=== PATIENT | male | born 1935 | race Caucasian/White ===

== ENCOUNTER 2017-04-09 14:46 | Emergency (ER) | payer MEDICARE, OTHER ==
[2017-04-09] MEDS ORDERED: HYDROcodone/APAP 5-325MG 1 EACH TAB PO STA (15:10)
--- NOTE | 2017-04-09 15:32 | ED ---
Upper Extremity HPI - General Chief Complaint: Extremity Injury, Upper Stated Complaint: Fall Time Seen by Provider: 04/09/17 15:01 Source: patient Mode of arrival: wheelchair Limitations: no limitations - History of Present Illness Initial Comments: This 81-year-old white male presents complaining of some right upper extremity pain. He states that he tripped and fell this morning and landed on his right arm. He developed significant swelling present to his right forearm has pain in his right forearm and elbow region. He apparently went to the urgent care and they did some x-rays which are purportedly negative sent him to the ER for possible drainage and ultrasound. He presents with significant ecchymosis and obvious hematoma present to his right forearm. The daughter relates that he is on blood thinners. 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 He denies any head injury or neck pain. He denies any loss of consciousness. There is no other injuries or complaints or modifying factors. - Related Data Home Medications Medication Instructions Recorded Confirmed Aspirin 81 mg PO DAILY 09/14/14 04/09/17 Carvedilol [Coreg] 6.25 mg PO BID 09/14/14 04/09/17 Clopidogrel [Plavix] 75 mg PO DAILY 09/14/14 04/09/17 Lisinopril [Prinivil] 20 mg PO DAILY 09/14/14 04/09/17 Atorvastatin [Lipitor] 80 mg PO DAILY 04/09/17 04/09/17 Citalopram Hydrobromide [CeleXA] 20 mg PO DAILY 04/09/17 04/09/17 Diazepam [Valium] 5 mg PO DAILY PRN 04/09/17 04/09/17 Hydrochlorothiazide 12.5 mg PO DAILY 04/09/17 04/09/17 Pioglitazone HCl 15 mg PO DAILY 04/09/17 04/09/17 Previous Rx's Medication Instructions Recorded Hydrocodone/Acetaminophen [[place] 1 - 2 each PO Q4HR PRN #20 tab 04/09/17 5-325] Allergies Allergy/AdvReac Type Severity Reaction Status Date / Time No Known Allergies Allergy Verified 04/09/17 16:14 Review of Systems ROS Statement: Those systems with pertinent positive or pertinent negative responses have been documented in the HPI. ROS Other: All systems not noted in ROS Statement are negative. Past Medical History Past Medical History: Cancer, Heart Failure, CVA/TIA, Hypertension History of Any Multi-Drug Resistant Organisms: None Reported Past Surgical History: Cholecystectomy Additional Past Surgical History / Comment(s): Left wrist carpal tunnel, right shoulder Past Psychological History: No Psychological Hx Reported Smoking Status: Never smoker Past Alcohol Use History: Rare Past Drug Use History: None Reported General Exam - General Exam Comments Initial Comments: GENERAL: The patient is well nourished and well hydrated. VITAL SIGNS: Heart rate, blood pressure, respiratory rate reviewed as recorded in nurse's notes. EYES: Pupils are round and reactive. Extraocular movements are intact. No conjunctival / lid redness or swelling. ENT: No external evidence of injury, swelling, or ecchymosis. Airway is patent. Throat is clear. NECK: Nontender. No swelling or evidence of injury. No subcutaneous emphysema. Trachea is midline. No thyroid mass. HEART: Regular rate and rhythm. Good peripheral pulses. LUNGS/CHEST: Breath sounds clear and equal bilaterally. No rales, rhonchi, or wheezes. No ecchymosis, subcutaneous emphysema, or tenderness. ABDOMEN: Abdomen soft without tenderness. No palpable masses or organomegaly. No peritoneal signs. No abdominal wall swelling or ecchymosis. EXTREMITIES: There is tenderness, swelling, and ecchymosis present to the right forearm. There is excellent range of motion of the wrist and the elbow without any difficulty. Patient does have decent strength the right upper and right lower extremity but this is decreased as compared to the left side. Normal muscle tone and function. No thoracolumbar tenderness. NEUROLOGIC: Sensation is grossly intact. Cranial nerve exam reveals face is symmetrical, tongue is midline, speech is clear. SKIN: Ecchymosis and swelling is noted present to the right forearm. No induration or masses noted. PSYCHIATRIC: Alert and oriented. Appropriate behavior and judgment. Limitations: no limitations Course Vital Signs 04/09/17 14:52 Temperature 97.5 F L Pulse Rate 66 Respiratory 18 Rate Blood Pressure 186/86 O2 Sat by Pulse 95 Oximetry Medical Decision Making - Medical Decision Making The patient was seen and examined. An ultrasound is ordered of the right upper extremity. X-rays also are ordered of the right upper extremities. The patient received some [place] for pain and has moderate relief. The x-rays do show evidence of a nondisplaced rib right radial head fracture. The patient also had a ultrasound done of his right upper extremity and this does show a 5 cm 6 cm right forearm hematoma but there is no evidence of any DVT. It is felt that this hematoma would likely resolve with time. It is felt as though the hematoma is fairly vague as he is on Plavix and aspirin. He is placed in a right arm sling. It is felt that he benefit from follow-up with orthopedics in regard to his right radial head fracture. He is seeing Dr. Hernandez in the past. He leaves in much less distress. He is counseled regarding ambulation and falls as well. It is felt that he should follow-up with his primary doctor in regard to hypertension. Disposition Clinical Impression: Hematoma of arm, Right radial head fracture, Fall, Hypertension Disposition: HOME SELF-CARE Condition: Good Instructions: Fall Prevention (ED), Elbow Fracture in Adults (ED), Hypertension (ED), Hematoma (ED) Prescriptions: Hydrocodone/Acetaminophen [[place] 5-325] 1 - 2 each PO Q4HR PRN #20 tab PRN Reason: Pain Referrals: Pio Peguero MD [Primary Care Provider] - 1-2 days Time of Disposition: 17:24
--- NOTE | 2017-04-09 16:05 | XR ---
EXAMINATION TYPE: XR elbow limited RT DATE OF EXAM: 04/09/2017 3:58 PM COMPARISON: NONE HISTORY: Fall, pain TECHNIQUE: 2 view right elbow FINDINGS: There is a subtle fracture at the head of the radius. Small avulsion adjacent to the head o f the radius is present. There is elevation of the anterior fat pad. IMPRESSION: 1. Fracture at the head of the radius.
--- NOTE | 2017-04-09 16:06 | XR ---
EXAMINATION TYPE: XR forearm RT DATE OF EXAM: 04/09/2017 3:58 PM COMPARISON: NONE HISTORY: Fall, pain TECHNIQUE: 2 view right forearm FINDINGS: Please see elbow discussion same date. Soft tissue swelling is over the proximal forearm. Displaced fractures of the distal radius or ulna i s not identified. There is a fracture present at the head of the radius. This is better visualized on the elbow images. IMPRESSION: 1. Fracture radial head. Please see discussion same date. 2. Soft tissue swelling proximal forearm
--- NOTE | 2017-04-09 17:17 | US ---
EXAMINATION TYPE: US venous doppler duplex UE RT DATE OF EXAM: 04/09/2017 4:58 PM COMPARISON: NONE CLINICAL HISTORY: Pain. Patient fell today landing on floor injuring right arm with forearm swelling and bruising. SIDE PERFORMED: right arm Right Arm: Negative for DVT. Complex oval area is noted posterolateral elbow at swelling and mass siz e = 6.0 x 2.7 x 5.0cm with additional fluid channels noted posterior forearm at bruises. IMPRESSION: No evidence of deep venous thrombosis. There is a complex subcutaneous mass at the posterior right el bow that could relate to hematoma.
--- NOTE | 2017-04-09 17:25 | ED ---
Disposition Clinical Impression: Hematoma of arm, Right radial head fracture, Fall, Hypertension Disposition: HOME SELF-CARE Condition: Good Instructions: Elbow Fracture in Adults (ED), Hypertension (ED), Fall Prevention (ED), Hematoma (ED) Prescriptions: Hydrocodone/Acetaminophen [[place] 5-325] 1 - 2 each PO Q4HR PRN #20 tab PRN Reason: Pain Referrals: Pio Peguero MD [Primary Care Provider] - 1-2 days Armando Hernandez DO [Doctor of Osteopathic Medicine] - 04/12/17
[2017-04-09 17:41] VITALS: BP 184/79; PULSE 56; RESP 16; TEMP 97.1
== END 2017-04-09 17:52 | disposition home or self-care (01) ==
LOC: EC 14:46
DX: S52.124A Nondisplaced fracture of head of right radius, initial encounter for closed fracture (principal); I11.0 Hypertensive heart disease with heart failure; Z79.02 Long term (current) use of antithrombotics/antiplatelets; Z79.82 Long term (current) use of aspirin; Z79.899 Other long term (current) drug therapy; Z86.73 Personal history of transient ischemic attack (TIA), and cerebral infarction without residual deficits; W01.0XXA Fall on same level from slipping, tripping and stumbling without subsequent striking against object, initial encounter
CPT/HCPCS: 99284

== ENCOUNTER 2017-04-20 16:58 | Inpatient (IN) | payer MEDICARE, OTHER ==
[2017-04-20] MEDS ORDERED: SODIUM CHLORIDE 0.9% 1,000 ML IV STA (17:36)
--- NOTE | 2017-04-20 17:45 | ED ---
Upper Extremity HPI - General Source: patient, RN notes reviewed Mode of arrival: ambulatory Limitations: no limitations <Brianna Perla - Last Filed: 04/20/17 20:42> <Greyson Sotomayor - Last Filed: 04/20/17 21:05> - General Chief Complaint: Extremity Injury, Upper Stated Complaint: Poss Blood Clot-swollen Elbow Time Seen by Provider: 04/20/17 17:30 - History of Present Illness Initial Comments: 81 yo male presents to the ER with cc of right elbow pain and swelling. Patient has had this elbow injury about a week ago when he fell and he had a hairline fracture to the elbow. Patient follow-up with Dr. Hawk due to the swelling they said that they like him to discontinue range of motion did not placement of cast. He went to his doctor today due to increased swelling and pain in the were concerned about infection versus blood clot so they referred him here. Patient states he does have a healing abrasion to the right elbow. The patient states it is more swollen and he is having hard time moving it due to discomfort. Patient states he hasn't had any fever chills with this. Patient denies any other symptoms at this time.Patient denies any recent fever , chills, shortness of breath, chest pain, back pain, abdominal pain, nausea vomiting, numbness or tingling, dysuria or hematuria, constipation or diarrhea, headaches or visual changes, or any other current symptoms. (Brianna Perla) - Related Data Home Medications Medication Instructions Recorded Confirmed Aspirin 81 mg PO DAILY 09/14/14 04/20/17 Carvedilol [Coreg] 6.25 mg PO BID 09/14/14 04/20/17 Clopidogrel [Plavix] 75 mg PO DAILY 09/14/14 04/20/17 Atorvastatin [Lipitor] 80 mg PO DAILY 04/09/17 04/20/17 Citalopram Hydrobromide [CeleXA] 20 mg PO DAILY 04/09/17 04/20/17 Diazepam [Valium] 5 mg PO DAILY PRN 04/09/17 04/20/17 Hydrochlorothiazide 12.5 mg PO DAILY 04/09/17 04/20/17 Pioglitazone HCl 15 mg PO DAILY 04/09/17 04/20/17 Hydrocodone/Acetaminophen [[place] 1 - 2 tab PO Q4HR PRN 04/20/17 04/20/17 5-325] Lisinopril [Zestril] 30 mg PO DAILY 04/20/17 04/20/17 Allergies Allergy/AdvReac Type Severity Reaction Status Date / Time No Known Allergies Allergy Verified 04/20/17 17:50 Review of Systems ROS Other: All systems not noted in ROS Statement are negative. <Brianna Perla - Last Filed: 04/20/17 20:42> ROS Other: All systems not noted in ROS Statement are negative. <Greyson Sotomayor - Last Filed: 04/20/17 21:05> ROS Statement: Those systems with pertinent positive or pertinent negative responses have been documented in the HPI. Past Medical History Past Medical History: Cancer, Heart Failure, CVA/TIA, Hypertension History of Any Multi-Drug Resistant Organisms: None Reported Past Surgical History: Cholecystectomy Additional Past Surgical History / Comment(s): Left wrist carpal tunnel, right shoulder Past Psychological History: No Psychological Hx Reported Smoking Status: Never smoker Past Alcohol Use History: Rare Past Drug Use History: None Reported <Brianna Perla - Last Filed: 04/20/17 20:42> General Exam Limitations: no limitations <Brianna Perla - Last Filed: 04/20/17 20:42> <Greyson Sotomayor - Last Filed: 04/20/17 21:05> - General Exam Comments Initial Comments: General: The patient is awake and alert, in no distress, and does not appear acutely ill. Neck: The neck is supple, there is no tenderness. Cardiovascular: There is a regular rate and rhythm. No murmur, rub or gallop is appreciated. Respiratory: Lungs are clear to auscultation, respirations are non-labored, breath sounds are equal. No wheezes, stridor, rales, or rhonchi. Musculoskeletal: Sensation intact with 2+ pulses. Extremity. Full range of motion of right shoulder and right elbow with passive range of motion. Patient has difficulty with active range of motion of the right elbow. Patient does appear to pitting edema with erythema and her nose to the upper arm. There is no abrasion that is circular noted to the elbow region. Neurological: CN II-XII intact, There are no obvious motor or sensory deficits. Coordination appears grossly intact. Speech is normal. Skin: Skin is warm and dry and no rashes or lesions are noted. Psychiatric: Normal mood and affect. (Brianna Perla) Course <Brianna Perla - Last Filed: 04/20/17 20:42> <Greyson Sotomayor - Last Filed: 04/20/17 21:05> Vital Signs 04/20/17 17:19 Temperature 97 F L Pulse Rate 53 L Respiratory 16 Rate Blood Pressure 140/66 O2 Sat by Pulse 98 Oximetry - Reevaluation(s) Reevaluation #1: 04/20/17 21:04 I did personally do a [id number] evaluation the patient did discuss the findings with the patient and family. 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 The concern is for cellulitis. I did discuss case with Dr. Peguero initially Dr. Mehta was consult and contacted. Patient will be admitted for IV inpatient therapy. (Greyson Sotomayor) Medical Decision Making - Lab Data Result diagrams: 04/20/17 19:33 04/20/17 19:33 - Radiology Data Radiology results: report reviewed, image reviewed <Brianna Perla - Last Filed: 04/20/17 20:42> - Lab Data Result diagrams: 04/20/17 19:33 04/20/17 19:33 <Greyson Sotomayor - Last Filed: 04/20/17 21:05> - Medical Decision Making 81-year-old male presents to the emergency room chief complaint of concern for infection to the right upper extremity. At this time patient does appear to have a right upper shoulder any cellulitis. This and there is no DVT. The patient's health history as well as the elevated (hemoglobin for IV hydration and IV antibiotics. This is discussed with the patient family agreement with plan. All questions have been answered. They will be admitted. (Brianna Perla) - Lab Data Lab Results 04/20/17 04/20/17 04/20/17 Range/Units 19:33 19:33 19:33 WBC 5.9 (3.8-10.6) k/uL RBC 3.51 L (4.30-5.90) m/uL Hgb 11.5 L (13.0-17.5) gm/dL Hct 34.2 L (39.0-53.0) % MCV 97.5 (80.0-100.0) fL MCH 32.7 (25.0-35.0) pg MCHC 33.5 (31.0-37.0) g/dL RDW 13.4 (11.5-15.5) % Plt Count 132 L (150-450) k/uL Neutrophils % 60 % Lymphocytes % 28 % Monocytes % 5 % Eosinophils % 4 % Basophils % 1 % Neutrophils # 3.6 (1.3-7.7) k/uL Lymphocytes # 1.7 (1.0-4.8) k/uL Monocytes # 0.3 (0-1.0) k/uL Eosinophils # 0.3 (0-0.7) k/uL Basophils # 0.0 (0-0.2) k/uL Sodium 137 (137-145) mmol/L Potassium 5.6 H (3.5-5.1) mmol/L Chloride 105 (98-107) mmol/L Carbon Dioxide 25 (22-30) mmol/L Anion Gap 7 mmol/L BUN 35 H (9-20) mg/dL Creatinine 1.75 H (0.66-1.25) mg/dL Est GFR (MDRD) Af Amer 46 (>60 ml/min/1.73 sqM) Est GFR (MDRD) Non-Af 38 (>60 ml/min/1.73 sqM) Glucose 81 (74-99) mg/dL Plasma Lactic Acid Michael 0.8 (0.7-2.0) mmol/L Calcium 9.2 (8.4-10.2) mg/dL Total Bilirubin 1.1 (0.2-1.3) mg/dL AST 21 (17-59) U/L ALT 30 (21-72) U/L Alkaline Phosphatase 83 (38-126) U/L Total Protein 6.6 (6.3-8.2) g/dL Albumin 3.8 (3.5-5.0) g/dL Disposition Time of Disposition: 20:38 Decision Date: 04/20/17 Decision Time: 20:38 <Brianna Perla - Last Filed: 04/20/17 20:42> <Greyson Sotomayor - Last Filed: 04/20/17 21:05> Clinical Impression: Right radial head fracture, Right arm cellulitis, Dehydration, Elevated creatine kinase level Disposition: ADMITTED IP TO THIS [facility] Condition: Stable Referrals: Pio Peguero MD [Primary Care Provider] - 1-2 days
--- NOTE | 2017-04-20 19:04 | XR ---
EXAMINATION TYPE: XR elbow complete RT DATE OF EXAM: 04/20/2017 COMPARISON: 04/09/2017 HISTORY: Pain TECHNIQUE: 5 views right elbow FINDINGS: There is a fracture at the head of the radius. Radius aligns normally with the humerus. Dif fuse soft tissue swelling is at the elbow and proximal forearm. Small avulsion is identified on the A P projection from the radial head. IMPRESSION: 1. Fracture at the radial head. Findings are stable from 04/09/2017.
--- NOTE | 2017-04-20 19:19 | US ---
EXAMINATION TYPE: US venous doppler duplex UE RT DATE OF EXAM: 04/20/2017 COMPARISON: US CLINICAL HISTORY: Pain. Rt elbow swelling SIDE PERFORMED: Right Right Arm: Negative for DVT IMPRESSION: 1. No deep venous thrombosis right upper extremity by ultrasound evaluation.
[2017-04-20] MEDS ORDERED: HYDROmorphone 1 MG/ML 1 ML SYRINGE IVP STA (19:45)
[2017-04-20 19:55] LABS: Basophils % (A) 1 %; CH 32.6; CHCM 33.7; Eosinophils # (A) 0.3 k/uL (0-0.7); Eosinophils % (A) 4 %; HCT 34.2 % (39.0-53.0); HDW 2.47; HGB 11.5 gm/dL (13.0-17.5); Luc # (Auto) 0.14; Luc % (Auto) 2; Lymphocytes # (A) 1.7 k/uL (1.0-4.8); Lymphocytes % (A) 28 %; MCH 32.7 pg (25.0-35.0); MCHC 33.5 g/dL (31.0-37.0); MCV 97.5 fL (80.0-100.0); Mean Platelet Volume 8.2; Monocytes # (A) 0.3 k/uL (0-1.0); Monocytes % (A) 5 %; Neutrophils # (A) 3.6 k/uL (1.3-7.7); Neutrophils % (A) 60 %; RBC 3.51 m/uL (4.30-5.90); RDW 13.4 % (11.5-15.5); WBC 5.9 k/uL (3.8-10.6); WBC (Perox) 6.12
[2017-04-20] MEDS ORDERED: IV VANCOMYCIN PER PHARMACY 1 EACH MISC MISCELLANE PRN (20:02)
[2017-04-20] MEDS ORDERED: VANCOMYCIN 2,500 MG in SODIUM CHLORIDE 0.9% 500 ML IVPB STA (20:04)
[2017-04-20 20:10] LABS: Calcium 9.2 mg/dL (8.4-10.2); Potassium 5.6 mmol/L (3.5-5.1); Total Bilirubin 1.1 mg/dL (0.2-1.3); Total Protein 6.6 g/dL (6.3-8.2)
[2017-04-20] MEDS ORDERED: ACETAMINOPHEN TAB 325 MG TAB PO PRN (20:38)
[2017-04-20] MEDS ORDERED: IBUPROFEN 400 MG TAB PO PRN (20:38)
[2017-04-20] MEDS ORDERED: NALOXONE 0.4 MG/ML 1 ML VIAL IV PRN (20:38)
[2017-04-20] MEDS ORDERED: ONDANSETRON 4 MG/2 ML VIAL IVP PRN (20:38)
[2017-04-20] MEDS ORDERED: DIAZEPAM 5 MG TAB PO PRN (20:41)
[2017-04-20] MEDS: CARVEDILOL 6.25 MG TAB PO SCH (22:17)
[2017-04-20] MEDS: SODIUM CHLORIDE 0.9% 1,000 ML IV SCH (22:19)
[2017-04-21] MEDS: HYDROmorphone 1 MG/ML 1 ML SYRINGE IV PRN ×2 (05:35→15:51)
[2017-04-21 07:38] LABS: Glucose,Whole Blood 93 mg/dL (75-99)
[2017-04-21 08:47] LABS: Basophils % (A) 0 %; CH 32.2; CHCM 32.3; Eosinophils # (A) 0.1 k/uL (0-0.7); Eosinophils % (A) 3 %; HCT 33.5 % (39.0-53.0); HDW 2.36; HGB 10.8 gm/dL (13.0-17.5); Luc % (Auto) 2; Lymphocytes % (A) 21 %; MCH 32.2 pg (25.0-35.0); MCHC 32.1 g/dL (31.0-37.0); MCV 100.2 fL (80.0-100.0); Macrocytosis Slight; Mean Platelet Volume 7.9; Monocytes # (A) 0.3 k/uL (0-1.0); Monocytes % (A) 5 %; Neutrophils # (A) 3.5 k/uL (1.3-7.7); Neutrophils % (A) 70 %; RBC 3.35 m/uL (4.30-5.90); RDW 13.7 % (11.5-15.5); WBC (Perox) 5.43
[2017-04-21 08:59] LABS: Potassium 5.3 mmol/L (3.5-5.1); Total Bilirubin 0.8 mg/dL (0.2-1.3); Total Protein 5.6 g/dL (6.3-8.2)
[2017-04-21] MEDS ORDERED: LISINOPRIL 10 MG TAB PO SCH (09:00)
[2017-04-21] MEDS ORDERED: HYDROCHLOROTHIAZIDE 12.5 MG CAP PO SCH (09:00)
[2017-04-21] MEDS: CLOPIDOGREL 75 MG TAB PO SCH (09:37)
[2017-04-21] MEDS: CARVEDILOL 6.25 MG TAB PO SCH ×2 (09:37→17:50)
[2017-04-21] MEDS: CITALOPRAM HYDROBROMIDE 20 MG TAB PO SCH (09:37)
[2017-04-21] MEDS: PIOGLITAZONE 15 MG TAB PO SCH (09:37)
[2017-04-21] MEDS: ASPIRIN 81 MG CHEW PO SCH (09:38)
[2017-04-21] MEDS: ATORVASTATIN 80 MG TAB PO SCH (09:38)
[2017-04-21] MEDS: SODIUM CHLORIDE 0.9% 1,000 ML IV SCH ×4 (09:41→21:14)
[2017-04-21] MEDS: ENOXAPARIN 40 MG/0.4 ML SYRINGE SQ SCH (09:41)
--- NOTE | 2017-04-21 11:25 | HP ---
DATE OF ADMISSION: 04/20/2017 Presenting complaint: ( ) on the right elbow. HISTORY OF PRESENTING COMPLAINT: This is a 81-year-old patient of Dr. Peguero, chronic stable medical conditions include congestive heart failure, stroke, right-sided numbness, hypertension, diabetes, depression, hypercholesterolemia. Patient is not the best of historians. Patient took a fall about 10 days ago, had a fracture of the right radius. Supposed to come back and see Dr. Hernandez from Orthopedics. In the meantime, the patient's right elbow has swelled up, very extreme tenderness actually just beyond the elbow with an area of grazing there. Denies any fevers, but extreme tenderness. Patient not able to move his elbow much. REVIEW OF SYSTEMS: CONSTITUTIONAL: Tired. HEENT: None. RESPIRATORY: None. CARDIOVASCULAR: None. GASTROINTESTINAL: None. GENITOURINARY: None. MUSCULOSKELETAL: As above. DERMATOLOGICAL: Bruising distal to the right elbow. PSYCHIATRY: Patient is rather slow to answer questions. NEUROLOGICAL: None. PAST HISTORY: Congestive heart failure, stroke with right-sided numbness, hypertension, diabetes, depression, hypercholesterolemia, [place], abdominal aortic aneurysm. PAST SURGICAL HISTORY: Cholecystectomy, left wrist carpal tunnel, right shoulder surgery. SOCIAL HISTORY: . Did smoke in the past. Alcohol rarely. Family history of congestive heart failure. HOME MEDICATIONS: 1. [place] 5 one to two tablets q.4 p.r.n. 2. Actos 50 mg p.o. daily. 3. Zestril 30 mg p.o. daily. 4. Hydrochlorothiazide 12.5 p.o. daily. 5. Valium 5 mg p.o. daily p.r.n. 6. Plavix 75 mg daily. 7. Celexa 20 mg a day. 8. Coreg 6.25 p.o. b.i.d. 9. Lipitor 80 mg p.o. daily. 10. Aspirin 81 mg p.o. daily. ALLERGIES: None. On examination, vital signs on presentation: Temperature 98.7, pulse 53, respirations 16, blood pressure 140/66, pulse ox 98% on room air. GENERAL APPEARANCE: Well built, BMI of 67. Lying in bed. EYES: Pupils equal, conjunctivae normal. HEENT: Oral cavity normal. NECK: JVD unable to assess. Mass not palpable. RESPIRATORY: Effort normal. LUNGS: Slightly decreased breath sounds. CARDIOVASCULAR: First and second sounds normal. No edema. ABDOMEN: Soft, nontender. Liver and spleen not palpable. LYMPHATIC: No lymph node palpable in neck or axillae. PSYCHIATRY: Patient is slow to answer questions. Mood and affect normal. EXTREMITIES: Great swelling beyond the right elbow, area of extreme tenderness that has superficial bruising on the skin. Patient has good capillary reflects, pulse is maintained in the radial. INVESTIGATIONS: White count 5.9, hemoglobin 11.5, potassium 5.6. BUN 35, creatinine 1.75. Doppler ultrasound no DVT. ASSESSMENT: 1. Area of extreme swelling, could be abscess/subcutaneous cellulitis in the right elbow with area of superficial bruising from a fall about 10 days ago causing some limitation to the right elbow though this appears to be distal to the elbow joint. 2. Right radial neck fracture secondary to fall recently. 3. Chronic congestive heart failure, ejection fraction not known. 4. Essential hypertension. 5. Diabetes mellitus type 2, on oral hypoglycemic. 6. Chronic kidney disease stage III, likely from diabetic nephropathy. 7. Hypercholesterolemia. 8. Coronary artery disease with prior history of myocardial infarction. 9. Abdominal aortic aneurysm. 10. Essential hypertension. 11. Morbid obesity, body mass index of 67. PLAN: At this point, patient is put on vancomycin. Will consult Infectious Disease, Dr. Hernandez was also consulted. Will do an ultrasound of the area to make sure there is no abscess. Otherwise, will have to be drained. This is rather tender at this point. Given that patient has got hyperkalemia, will hold off patient's Zestril and given renal failure will also DC patient's Motrin. Care was discussed with the patient. Questions were answered.
[2017-04-21 12:29] LABS: Glucose,Whole Blood 106 mg/dL (75-99)
[2017-04-21 12:31] LABS: Hemoglobin A1C 5.6 % (4.2-6.1)
--- NOTE | 2017-04-21 12:31 | US ---
EXAMINATION TYPE: US extremity nonvasc mass RT DATE OF EXAM: 04/21/2017 COMPARISON: NONE CLINICAL HISTORY: poss abscess. Painful lump on right lateral upper forearm, below elbow. Area of palpable lump scanned. Heterogenous complex superficial lesion seen = 5.3 x 5.7 x 2.6 cm. Lit tle to no vascularity seen. IMPRESSION: Complex collection at the site of clinical concern and may reflect a hematoma. Infected collection is not excluded. Please note this collection is not drainable.
[2017-04-21 17:19] LABS: Glucose,Whole Blood 103 mg/dL (75-99)
[2017-04-21] MEDS ORDERED: VANCOMYCIN 2,500 MG in SODIUM CHLORIDE 0.9% 500 ML IVPB SCH (18:00)
[2017-04-21 20:30] LABS: Glucose,Whole Blood 121 mg/dL (75-99)
[2017-04-22] MEDS: SODIUM CHLORIDE 0.9% 1,000 ML IV SCH ×3 (06:53→23:08)
[2017-04-22 07:02] LABS: Glucose,Whole Blood 94 mg/dL (75-99)
[2017-04-22 08:08] LABS: Basophils # (A) 0.1 k/uL (0-0.2); Basophils % (A) 1 %; CH 32.2; CHCM 33.1; Eosinophils # (A) 0.2 k/uL (0-0.7); Eosinophils % (A) 3 %; HCT 32.9 % (39.0-53.0); HDW 2.37; Luc # (Auto) 0.13; Luc % (Auto) 2; Lymphocytes # (A) 1.1 k/uL (1.0-4.8); Lymphocytes % (A) 17 %; MCH 32.7 pg (25.0-35.0); MCHC 33.4 g/dL (31.0-37.0); MCV 97.7 fL (80.0-100.0); Mean Platelet Volume 8.3; Monocytes # (A) 0.3 k/uL (0-1.0); Monocytes % (A) 5 %; Neutrophils % (A) 74 %; RBC 3.36 m/uL (4.30-5.90); RDW 13.7 % (11.5-15.5); WBC 6.8 k/uL (3.8-10.6); WBC (Perox) 6.57
[2017-04-22 08:26] LABS: Calcium 8.7 mg/dL (8.4-10.2); Potassium 5.3 mmol/L (3.5-5.1)
[2017-04-22] MEDS: ENOXAPARIN 40 MG/0.4 ML SYRINGE SQ SCH (08:59)
[2017-04-22] MEDS: PIOGLITAZONE 15 MG TAB PO SCH (08:59)
[2017-04-22] MEDS: CLOPIDOGREL 75 MG TAB PO SCH (08:59)
[2017-04-22] MEDS: CARVEDILOL 6.25 MG TAB PO SCH ×2 (08:59→16:13)
[2017-04-22] MEDS: ASPIRIN 81 MG CHEW PO SCH (08:59)
[2017-04-22] MEDS: ATORVASTATIN 80 MG TAB PO SCH (08:59)
[2017-04-22] MEDS: CITALOPRAM HYDROBROMIDE 20 MG TAB PO SCH (08:59)
[2017-04-22 09:20] LABS: RBC Morphology Normal
[2017-04-22 12:27] LABS: Glucose,Whole Blood 93 mg/dL (75-99)
[2017-04-22 17:21] LABS: Glucose,Whole Blood 96 mg/dL (75-99)
--- NOTE | 2017-04-22 17:36 | P.CONS ---
History of Present Illness - Reason for Consult Consult date: 04/22/17 - Chief Complaint Pain and swelling right arm - History of Present Illness Very pleasant 81-year-old male presents to Hospital because of increasing pain swelling and discomfort to his right hand and arm. Relates that just less than 2 weeks ago suffered a fall in his bathroom. There was a throw rug that he slipped on falling onto his back. He is right-handed and braced his fall is a candidate for more with his right arm than his left. He was seen in the emergency center was found evidence of a fracture to the right radial head. He was treated originally with a brace and the brace was removed so that he would not have a frozen elbow. He now presents with fever chills increasing pain and swelling to the right arm that goes only down to his hand. He relates in the last few hours since coming to Hospital the hand swelling is improved is unable to move the fingers which she was not able to do right at admission. It is still very uncomfortable. He has been constipated for a week but is denying nausea or emesis. Review of Systems HEENT:Denies headache or acute visual change. Denies sinus or mouth discomforts. Denies neck stiffness or pain. Denies significant oral cavity pain. Denies difficulty on swallowing. Lungs: Denies significant shortness of breath, cough, sputum production, or hemoptysis. Cardiovascular: Denies significant shortness of breath, chest pain, chest wall pain, orthopnea, dyspnea on exertion, syncope Gastrointestinal:Denies nausea, vomiting, diarrhea, constipation, hematemesis, melena, hematochezia. No no significant change of bowel habit noticed. Musculoskeletal: denies significant myalgias or arthralgias. Pain and swelling to the right elbow as per the HPI. Denies pain in the left arm or other areas status post his fall Skin: As per the HPI Neuro: Denies headache or visual change. Denies any new onset weakness or difficulty with ambulation. Denies falls or seizures. Psychiatric:Denies anxiety or depression. Endocrine: Denies significant fatigue, denies significant weight loss or weight gain. Past Medical History Past Medical History: Cancer, Heart Failure, CVA/TIA, Hypertension Additional Past Medical History / Comment(s): Patient states he has abdominal aortic aneurysm History of Any Multi-Drug Resistant Organisms: None Reported Past Surgical History: Cholecystectomy Additional Past Surgical History / Comment(s): Left wrist carpal tunnel, right shoulder Past Anesthesia/Blood Transfusion Reactions: No Reported Reaction Past Psychological History: No Psychological Hx Reported Additional Psychological History / Comment(s): Pleasant gentleman relates that he should've 12 years ago from the process with his aorta, he did not remit to surgical intervention at that time. 5 years ago he amazed his medical team that he was still alive. He is a retired cemetery laborer. With the family home with his . He was in the with the [employer]. No international travel. No animal exposures Smoking Status: Former smoker Past Alcohol Use History: Rare Additional Past Alcohol Use History / Comment(s): Rare drinker Past Drug Use History: None Reported - Past Family History Mother History Unknown: Yes Father Family Medical History: Congestive Heart Failure (CHF) Medications and Allergies Home Medications and Allergies Comment(s): Current Medications Acetaminophen (Tylenol Tab) 650 mg PO Q6HR PRN PRN Reason: Mild Pain or Fever > 100.5 Last Admin: 04/22/17 16:13 Dose: 650 mg Hydrocodone Bitart/Acetaminophen (Boston 5-325) 1 each PO Q4HR PRN PRN Reason: Moderate Pain Aspirin (Aspirin) 81 mg PO DAILY [facility] Last Admin: 04/22/17 08:59 Dose: 81 mg Atorvastatin Calcium (Lipitor) 80 mg PO DAILY [facility] Last Admin: 04/22/17 08:59 Dose: 80 mg Carvedilol (Coreg) 6.25 mg PO BID-W/MEALS [facility] Last Admin: 04/22/17 16:13 Dose: 6.25 mg Citalopram Hydrobromide (Celexa) 20 mg PO DAILY [facility] Last Admin: 04/22/17 08:59 Dose: 20 mg Clopidogrel Bisulfate (Plavix) 75 mg PO DAILY [facility] Last Admin: 04/22/17 08:59 Dose: 75 mg Diazepam (Valium) 5 mg PO DAILY PRN PRN Reason: Anxiety Enoxaparin Sodium (Lovenox) 40 mg SQ DAILY [facility] Last Admin: 04/22/17 08:59 Dose: 40 mg Hydromorphone HCl (Dilaudid) 1 mg IV Q3HR PRN PRN Reason: Severe Pain Last Admin: 04/21/17 15:51 Dose: 1 mg Sodium Chloride (Saline 0.9%) 1,000 mls @ 100 mls/hr IV .Q10H [facility] Last Admin: 04/22/17 16:14 Dose: 100 mls/hr Vancomycin HCl 1,500 mg/ (Sodium Chloride) 250 mls @ 125 mls/hr IVPB Q24H [facility] Naloxone HCl (Narcan) 0.2 mg IV Q2M PRN PRN Reason: Opioid Reversal Ondansetron HCl (Zofran) 4 mg IVP Q8HR PRN PRN Reason: Nausea And Vomiting Pioglitazone HCl (Actos) 15 mg PO DAILY [facility] Last Admin: 04/22/17 08:59 Dose: 15 mg Home Medications Medication Instructions Recorded Confirmed Type Aspirin 81 mg PO DAILY 09/14/14 04/20/17 History Carvedilol [Coreg] 6.25 mg PO BID 09/14/14 04/20/17 History Clopidogrel [Plavix] 75 mg PO DAILY 09/14/14 04/20/17 History Atorvastatin [Lipitor] 80 mg PO DAILY 04/09/17 04/20/17 History Citalopram Hydrobromide [CeleXA] 20 mg PO DAILY 04/09/17 04/20/17 History Diazepam [Valium] 5 mg PO DAILY PRN 04/09/17 04/20/17 History Hydrochlorothiazide 12.5 mg PO DAILY 04/09/17 04/20/17 History Pioglitazone HCl 15 mg PO DAILY 04/09/17 04/20/17 History Hydrocodone/Acetaminophen [Boston 1 - 2 tab PO Q4HR PRN 04/20/17 04/20/17 History 5-325] Lisinopril [Zestril] 30 mg PO DAILY 04/20/17 04/20/17 History Allergies Allergy/AdvReac Type Severity Reaction Status Date / Time No Known Allergies Allergy Verified 04/20/17 17:50 Physical Exam Vitals: Vital Signs Temp Pulse Resp BP Pulse Ox 04/22/17 15:00 99.3 F 65 16 135/56 95 04/22/17 07:00 97.5 F L 71 16 142/74 95 04/21/17 23:00 98.3 F 64 18 117/51 94 L Intake and Output 04/22/17 04/22/17 04/22/17 06:59 14:59 22:59 Intake Total 350 Output Total 900 500 Balance -550 -500 Intake: Oral 350 Output: Urine 900 500 Other: Voiding Method Toilet # Voids 1 Weight 96.5 kg 93.8 kg Patient Weight 04/23/17 06:59 Weight 93.8 kg Pleasant 81-year-old gentleman uncomfortable because of his right arm, but not in distress HEENT: Anicteric conjunctiva are pink and moist nasal mucosa grossly intact without significant lesions, there is no thrush. Neck: The neck is supple without significant lymphadenopathy or thyromegaly. Lungs: Good bilateral air entry without significant crackles or wheezing. There is no significant bronchial sounds. There is no egophony or dullness. Heart: Regular rate and rhythm with an audible S1-S2, no S3 no S4. There is no significant murmur click or rub, PMI was nondisplaced. Abdomen: Positive bowel sounds soft and nontender without palpable masses or organomegaly. There was no guarding or rebound. Extremities: Left upper extremity without abnormalities right upper extremity shows evidence of the significant swelling from proximal to the elbow all the way to the hand at the fingers. Although the patient relates the hand swelling is improved since coming to hospital. There is deep discoloration from this entire area and has severe tenderness on the dorsum of the right hand with a deep induration. No expressible purulence is noted. There is an ulceration on the elbow of 2 x 2 by 0.1 cm. No other skin ulcers are seen. Skin is otherwise without rash or breakdown Neuro: Awake alert oriented to person place and time. There are no acute new gross focal sensory motor deficits.He over relates that his right arm was injured 5 years ago in a fall where he tore the musculature at the shoulder resulting in some chronic sensory loss to the hand and arm which has not changed recently. Results CBC & Chem 7: 04/22/17 07:20 04/22/17 07:20 Labs: Abnormal Lab Results - Last 24 Hours (Table) 04/21/17 04/22/17 04/22/17 Range/Units 20:28 07:20 07:20 RBC 3.36 L (4.30-5.90) m/uL Hgb 11.0 L (13.0-17.5) gm/dL Hct 32.9 L (39.0-53.0) % Plt Count 128 L (150-450) k/uL Potassium 5.3 H (3.5-5.1) mmol/L Chloride 112 H (98-107) mmol/L Carbon Dioxide 21 L (22-30) mmol/L BUN 33 H (9-20) mg/dL Creatinine 1.57 H (0.66-1.25) mg/dL POC Glucose (mg/dL) 121 H (75-99) mg/dL Microbiology - Last 24 Hours (Table) 04/20/17 19:33 Blood Culture - Preliminary Blood No Growth after 24 hours Laboratory Results WBC 6.8 k/uL (3.8-10.6) 04/22/17 07:20 RBC 3.36 m/uL (4.30-5.90) L 04/22/17 07:20 Hgb 11.0 gm/dL (13.0-17.5) L 04/22/17 07:20 Hct 32.9 % (39.0-53.0) L 04/22/17 07:20 MCV 97.7 fL (80.0-100.0) 04/22/17 07:20 MCH 32.7 pg (25.0-35.0) 04/22/17 07:20 MCHC 33.4 g/dL (31.0-37.0) 04/22/17 07:20 RDW 13.7 % (11.5-15.5) 04/22/17 07:20 Plt Count 128 k/uL (150-450) L 04/22/17 07:20 Neutrophils % 74 % 04/22/17 07:20 Lymphocytes % 17 % 04/22/17 07:20 Monocytes % 5 % 04/22/17 07:20 Eosinophils % 3 % 04/22/17 07:20 Basophils % 1 % 04/22/17 07:20 Neutrophils # 5.0 k/uL (1.3-7.7) 04/22/17 07:20 Lymphocytes # 1.1 k/uL (1.0-4.8) 04/22/17 07:20 Monocytes # 0.3 k/uL (0-1.0) 04/22/17 07:20 Eosinophils # 0.2 k/uL (0-0.7) 04/22/17 07:20 Basophils # 0.1 k/uL (0-0.2) 04/22/17 07:20 RBC Morphology Normal 04/22/17 07:20 Macrocytosis Slight 04/21/17 08:08 Sodium 140 mmol/L (137-145) 04/22/17 07:20 Potassium 5.3 mmol/L (3.5-5.1) H 04/22/17 07:20 Chloride 112 mmol/L (98-107) H 04/22/17 07:20 Carbon Dioxide 21 mmol/L (22-30) L 04/22/17 07:20 Anion Gap 7 mmol/L 04/22/17 07:20 BUN 33 mg/dL (9-20) H 04/22/17 07:20 Creatinine 1.57 mg/dL (0.66-1.25) H 04/22/17 07:20 Est GFR (MDRD) Af Amer 52 (>60 ml/min/1.73 sqM) 04/22/17 07:20 Est GFR (MDRD) Non-Af 43 (>60 ml/min/1.73 sqM) 04/22/17 07:20 Glucose 92 mg/dL (74-99) 04/22/17 07:20 POC Glucose (mg/dL) 96 mg/dL (75-99) 04/22/17 17:20 POC Glu Platinum Smith ID Brooklynn Lilly 04/22/17 17:[address] Glu mg/dL 114 mg/dL 04/21/17 08:08 Hemoglobin A1c 5.6 % (4.2-6.1) 04/21/17 08:08 Plasma Lactic Acid Michael 0.8 mmol/L (0.7-2.0) 04/20/17 19:33 Calcium 8.7 mg/dL (8.4-10.2) 04/22/17 07:20 Total Bilirubin 0.8 mg/dL (0.2-1.3) 04/21/17 08:08 AST 18 U/L (17-59) 04/21/17 08:08 ALT 30 U/L (21-72) 04/21/17 08:08 Alkaline Phosphatase 73 U/L (38-126) 04/21/17 08:08 Total Protein 5.6 g/dL (6.3-8.2) L 04/21/17 08:08 Albumin 3.3 g/dL (3.5-5.0) L 04/21/17 08:08 Microbiology 04/20/17 19:33 Blood Blood Culture - Preliminary No Growth after 24 hours Assessment and Plan (1) Right radial head fracture Status: Acute (2) Right arm cellulitis Narrative/Plan: Pleasant 81-year-old gentleman percents from home with ongoing pain and swelling to his right arm. He is now greater than 10 days status post fall on his bathroom floor at home which resulted in the right radial head fracture. He now is evidence of the extensive cellulitis and swelling to the arm. With erythema from just proximal to the elbow all the way to the hand. The severe episodes Silvadene and medical honey will be placed on the ulceration. A light Nahid wrap will also be utilized. He is instructed to elevated on multiple pillows. This is also related to the nursing staff. With the cellulitis vancomycin therapy will be used by cultures are in process. The ongoing good control of his diabetes is helpful for wound healing. A multivitamin with zinc will be added. Protein level to be evaluated and supplemented as indicated. Pain control appears to be adequate at this time. Status: Acute (3) Fall Status: Acute
[2017-04-22 21:10] LABS: Glucose,Whole Blood 99 mg/dL (75-99)
--- NOTE | 2017-04-23 06:33 | CONS ---
DATE OF CONSULTATION: CHIEF COMPLAINT: Right elbow pain and swelling. HISTORY OF PRESENT ILLNESS: The patient is a 81-year-old, right-hand dominant retired male who presents after falling 10 days ago at home with increasing pain and swelling in his right elbow over the past couple of days. That brought him to the hospital. He denies fevers or chills. He notes he does have significant limitation of function of his right upper extremity from a previous stroke. He was recently seen by Dr. Hernandez for a right radial head fracture and has been treated in a sling. PAST MEDICAL HISTORY: Significant for heart disease, previous stroke with residual right-sided weakness, hypertension, diabetes, depression, hypercholesterolemia. PAST SURGICAL HISTORY: Significant for cholecystectomy and left carpal tunnel release in addition to previous right shoulder surgery. Current medications are reviewed and includes Plavix/Lovenox. He denies drug allergies. FAMILY HISTORY: Significant for heart disease. SOCIAL HISTORY: Significant for previous tobacco use. Sixteen-point review of systems otherwise reviewed and is noncontributory. On examination, the patient is a well-developed, well-nourished elderly male, who appears to be in no acute distress. Currently he is afebrile with stable vital signs. He is alert and oriented x3. He is nontender about the cervical, thoracic, and lumbar spine. He has no point tenderness about the right shoulder. On examination of his right elbow, he has tenderness over the radiocapitellar articulation. Elbow motion is - 40 degrees full extension to about 110 degrees of flexion. He has full pronation and supination of the right forearm. He does have 3 x 3 cm abrasion over the posterior lateral aspect of the right proximal forearm. There is no warmth or erythema. He has significant palpable hematoma directly under this area. There is mild tenderness over the proximal forearm. He is nontender about the right wrist and hand. He does have limitation of strength and some sensory deficits in the right upper extremity. X-rays of the right elbow show a type I radial head fracture with minimal displacement. A Doppler of the right upper extremity showed no evidence of DVT. Ultrasound of the right forearm and elbow shows what appears to be a heterogeneous fluid collection consistent with a hematoma. Laboratory results show peripheral white blood cell count 6.8 without a significant shift. Platelet count is 128. IMPRESSION: 1. Right type I radial head fracture. 2. Right forearm abrasion/hematoma. 3. Coagulopathy secondary to Plavix use. 4. History of cerebrovascular accident with residual right-sided weakness. RECOMMENDATIONS: At this point, I will order laboratory studies to include Sed rate and C-reactive protein. Clinically it does not appear his hematoma is grossly infected. I would recommend initial conservative measures as surgical intervention may cause recurrence of the hematoma and bleeding with him being anticoagulated. We will await Infectious Disease recommendations regarding local wound care. Thank you for this consultation. MIC
--- NOTE | 2017-04-23 07:48 | PN ---
DATE OF SERVICE: 04/22/2017 PRESENTING COMPLAINT: Swelling of the right elbow. INTERVAL HISTORY: This patient presented with left elbow swelling status post fall about 10 days ago sustained a right radial fracture. Today patient is sitting up in the bed, has better mobility of his right arm and fingers, able to lift his hand up further than previously. Patient has good mobility of his fingers, able to use his right hand better today. Tolerating his diet. Ambulatory in the bed, in the room and in the halls with assistance. Review of systems done for constitutional, cardiovascular, GI, pulmonary with relevant findings as above. CURRENT MEDICATIONS: Freedom 5/325 one tab q.4 hours, Lipitor 80 mg p.o. daily, Coreg 6.25 mg p.o. b.i.d., Plavix 75 mg p.o. daily, Silvadene cream topical one application daily, vancomycin 250 ml [id number] mg IV piggyback. PHYSICAL EXAM: VITAL SIGNS: Temperature 97.5, pulse 71, respiratory rate 16, blood pressure 142/74, oxygen saturation 95% on room air. GENERAL APPEARANCE: Patient is lying in bed. No acute distress noted. EYES: Pupils equal. Conjunctivae normal. NECK: JVD not raised. Mass not palpable. LUNGS: Sounds diminished bilaterally. RESPIRATORY: Effort normal. CARDIOVASCULAR: First and second sounds noted. Trace edema. ABDOMEN: Soft, nontender. Liver and spleen not palpable. PSYCHIATRY: Alert and oriented x3. Mood and affect are normal. INVESTIGATIONS: Infectious disease consult recommends antibiotic therapy to continue along with Medihoney and Silvadene cream. Ultrasound of right extremity reveals a non-drainable collection, may possibly be a hematoma possibly an infected fluid collection. White blood cell count 6.8, hemoglobin 11.0, platelet count 128, potassium 5.3. BUN 33, creatinine 1.57. Accu-Cheks noted. ASSESSMENT: 1. Right elbow cellulitis secondary to a fall, slow to respond. 2. Right radial neck fracture secondary to recent fall. 3. Chronic congestive heart failure, ejection fraction not known. 4. Essential hypertension. 5. Diabetes mellitus, type 2, on oral hypoglycemic. 6. Chronic kidney disease stage III likely from diabetic nephropathy. 7. Hypercholesterolemia. 8. Coronary artery disease with prior history of myocardial infarction. 9. Abdominal aortic aneurysm. 10. Essential hypertension. 11. Morbid obesity; body mass index of ( ). PLAN: Patient remains on vancomycin per Infectious Disease. Ultrasound results as listed above. Will continue to follow closely. Patient was seen and examined by nurse practitioner, Xiomara Cuevas, and all elements of the case discussed with attending, Dr. Mehta.
[2017-04-23 07:55] LABS: Basophils % (A) 0 %; CH 32.1; CHCM 32.3; Eosinophils # (A) 0.2 k/uL (0-0.7); Eosinophils % (A) 3 %; HCT 32.7 % (39.0-53.0); HGB 10.5 gm/dL (13.0-17.5); Luc # (Auto) 0.08; Luc % (Auto) 2; Lymphocytes # (A) 1.1 k/uL (1.0-4.8); Lymphocytes % (A) 23 %; MCH 32.3 pg (25.0-35.0); MCHC 32.3 g/dL (31.0-37.0); MCV 100.1 fL (80.0-100.0); Mean Platelet Volume 7.8; Monocytes # (A) 0.2 k/uL (0-1.0); Monocytes % (A) 5 %; Neutrophils # (A) 3.1 k/uL (1.3-7.7); Neutrophils % (A) 67 %; RBC 3.26 m/uL (4.30-5.90); RDW 13.5 % (11.5-15.5); WBC 4.7 k/uL (3.8-10.6); WBC (Perox) 4.96
[2017-04-23] MEDS: CARVEDILOL 6.25 MG TAB PO SCH ×2 (08:35→17:26)
[2017-04-23] MEDS: ATORVASTATIN 80 MG TAB PO SCH (08:35)
[2017-04-23] MEDS: ENOXAPARIN 40 MG/0.4 ML SYRINGE SQ SCH (08:35)
[2017-04-23] MEDS: PIOGLITAZONE 15 MG TAB PO SCH (08:36)
[2017-04-23] MEDS: CITALOPRAM HYDROBROMIDE 20 MG TAB PO SCH (08:36)
[2017-04-23] MEDS: CLOPIDOGREL 75 MG TAB PO SCH (08:36)
[2017-04-23] MEDS: ASPIRIN 81 MG CHEW PO SCH (08:36)
[2017-04-23 08:56] LABS: Calcium 8.6 mg/dL (8.4-10.2); Potassium 4.6 mmol/L (3.5-5.1)
--- NOTE | 2017-04-23 09:44 | PN ---
DATE OF SERVICE: 04/22/2017 ATTENDING NOTE: This patient was seen and examined by me on 04/22/2017. Patient presented with wound on the right forearm, a lot of pain and swelling still present. Seen by Dr. Leung. He thinks this may be cellulitis. Also, I talked to Dr. Alvares. At this point, the plan is to continue with IV antibiotics medicines, manage conservatively. There is slight improvement from presentation, slight more range of motion of the elbow, distal quite large and swollen. Family is at the bedside. On examination, large swollen wound on the right forearm, tenderness is present with slightly decreased than before. Lungs are clear. CARDIOVASCULAR: First and second sounds are normal. INVESTIGATIONS: White count 6.8. BUN 33, creatinine 1.57, potassium 5.3. ASSESSMENT: 1. Right forearm wound with cellulitis secondary to fall, slow to respond. 2. Right radial neck fracture secondary to recent fall. PLAN: Continue with antibiotics. Ultrasound was suggestive of questionable infected hematoma, will follow with Orthopedics and ID and follow clinically.
[2017-04-23] MEDS: SODIUM CHLORIDE 0.9% 1,000 ML IV SCH ×4 (11:53→23:30)
[2017-04-23 17:14] LABS: Glucose,Whole Blood 97 mg/dL (75-99)
[2017-04-23] MEDS: HYDROcodone/APAP 5-325MG 1 EACH TAB PO PRN (17:25)
[2017-04-23] MEDS: VANCOMYCIN 1,500 MG in SODIUM CHLORIDE 0.9% 250 ML IVPB SCH (17:26)
--- NOTE | 2017-04-23 20:59 | P.PN ---
Subjective Principal diagnosis: Pain and swelling of right arm Very pleasant 81-year-old male presents to Hospital because of increasing pain swelling and discomfort to his right hand and arm. Relates that just less than 2 weeks ago suffered a fall in his bathroom. There was a throw rug that he slipped on falling onto his back. He is right-handed and braced his fall is a candidate for more with his right arm than his left. He was seen in the emergency center was found evidence of a fracture to the right radial head. He was treated originally with a brace and the brace was removed so that he would not have a frozen elbow. He now presents with fever chills increasing pain and swelling to the right arm that goes only down to his hand. He relates in the last few hours since coming to Hospital the hand swelling is improved is unable to move the fingers which she was not able to do right at admission. Discomfort is slightly improved. But still has poor range of motion although slightly improved. Complains of constipation. Objective - Vital Signs Vital signs: Vital Signs Temp 97.3 F L 04/23/17 15:00 Pulse 63 04/23/17 15:00 Resp 16 04/23/17 15:00 BP 145/72 04/23/17 15:00 Pulse Ox 94 L 04/23/17 15:00 Intake & Output 04/23/17 04/23/17 04/24/17 06:59 18:59 06:59 Output Total 300 Balance -300 Weight 94 kg Output: Urine 300 Other: Voiding Method Toilet Toilet Urinal Urinal # Voids 2 3 # Bowel Movements 1 - Exam Pleasant 81-year-old gentleman uncomfortable because of his right arm, but not in distress HEENT: Anicteric conjunctiva are pink and moist nasal mucosa grossly intact without significant lesions, there is no thrush. Neck: The neck is supple without significant lymphadenopathy or thyromegaly. Lungs: Good bilateral air entry without significant crackles or wheezing. There is no significant bronchial sounds. There is no egophony or dullness. Heart: Regular rate and rhythm with an audible S1-S2, no S3 no S4. There is no significant murmur click or rub, PMI was nondisplaced. Abdomen: Positive bowel sounds soft and nontender without palpable masses or organomegaly. There was no guarding or rebound. Extremities: Left upper extremity without abnormalities right upper extremity shows evidence of the significant swelling from proximal to the elbow all the way to the hand at the fingers. Although the patient relates the hand swelling is improved since coming to hospital. There is deep discoloration from this entire area and has severe tenderness on the dorsum of the right hand with a deep induration. No expressible purulence is noted. There is an ulceration on the elbow of 2 x 2 by 0.1 cm. No other skin ulcers are seen. Skin is otherwise without rash or breakdown Neuro: Awake alert oriented to person place and time. There are no acute new gross focal sensory motor deficits.He over relates that his right arm was injured 5 years ago in a fall where he tore the musculature at the shoulder resulting in some chronic sensory loss to the hand and arm which has not changed recently. - Labs CBC & Chem 7: 04/23/17 07:05 04/23/17 07:11 Labs: Abnormal Lab Results - Last 24 Hours (Table) 04/22/17 04/23/17 04/23/17 Range/Units 17:03 07:05 07:11 RBC 3.26 L (4.30-5.90) m/uL Hgb 10.5 L (13.0-17.5) gm/dL Hct 32.7 L (39.0-53.0) % MCV 100.1 H (80.0-100.0) fL Plt Count 118 L (150-450) k/uL ESR 18 H (0-15) mm/hr Chloride 113 H (98-107) mmol/L Carbon Dioxide 20 L (22-30) mmol/L BUN 27 H (9-20) mg/dL Creatinine 1.52 H (0.66-1.25) mg/dL Microbiology - Last 24 Hours (Table) 04/20/17 19:33 Blood Culture - Preliminary Blood No Growth after 48 hours Laboratory Results WBC 4.7 k/uL (3.8-10.6) 04/23/17 07:05 RBC 3.26 m/uL (4.30-5.90) L 04/23/17 07:05 Hgb 10.5 gm/dL (13.0-17.5) L 04/23/17 07:05 Hct 32.7 % (39.0-53.0) L 04/23/17 07:05 MCV 100.1 fL (80.0-100.0) H 04/23/17 07:05 MCH 32.3 pg (25.0-35.0) 04/23/17 07:05 MCHC 32.3 g/dL (31.0-37.0) 04/23/17 07:05 RDW 13.5 % (11.5-15.5) 04/23/17 07:05 Plt Count 118 k/uL (150-450) L 04/23/17 07:05 Neutrophils % 67 % 04/23/17 07:05 Lymphocytes % 23 % 04/23/17 07:05 Monocytes % 5 % 04/23/17 07:05 Eosinophils % 3 % 04/23/17 07:05 Basophils % 0 % 04/23/17 07:05 Neutrophils # 3.1 k/uL (1.3-7.7) 04/23/17 07:05 Lymphocytes # 1.1 k/uL (1.0-4.8) 04/23/17 07:05 Monocytes # 0.2 k/uL (0-1.0) 04/23/17 07:05 Eosinophils # 0.2 k/uL (0-0.7) 04/23/17 07:05 Basophils # 0.0 k/uL (0-0.2) 04/23/17 07:05 RBC Morphology Normal 04/22/17 07:20 Macrocytosis Slight 04/21/17 08:08 ESR 18 mm/hr (0-15) H 04/22/17 17:03 Sodium 140 mmol/L (137-145) 04/23/17 07:11 Potassium 4.6 mmol/L (3.5-5.1) 04/23/17 07:11 Chloride 113 mmol/L (98-107) H 04/23/17 07:11 Carbon Dioxide 20 mmol/L (22-30) L 04/23/17 07:11 Anion Gap 7 mmol/L 04/23/17 07:11 BUN 27 mg/dL (9-20) H 04/23/17 07:11 Creatinine 1.52 mg/dL (0.66-1.25) H 04/23/17 07:11 Est GFR (MDRD) Af Amer 54 (>60 ml/min/1.73 sqM) 04/23/17 07:11 Est GFR (MDRD) Non-Af 44 (>60 ml/min/1.73 sqM) 04/23/17 07:11 Glucose 98 mg/dL (74-99) 04/23/17 07:11 POC Glucose (mg/dL) 97 mg/dL (75-99) 04/23/17 17:12 POC Glu Outpatient Clerk ID Hillary Parrish 04/23/17 17:[address] Glu mg/dL 114 mg/dL 04/21/17 08:08 Hemoglobin A1c 5.6 % (4.2-6.1) 04/21/17 08:08 Plasma Lactic Acid Michael 0.8 mmol/L (0.7-2.0) 04/20/17 19:33 Calcium 8.6 mg/dL (8.4-10.2) 04/23/17 07:11 Total Bilirubin 0.8 mg/dL (0.2-1.3) 04/21/17 08:08 AST 18 U/L (17-59) 04/21/17 08:08 ALT 30 U/L (21-72) 04/21/17 08:08 Alkaline Phosphatase 73 U/L (38-126) 04/21/17 08:08 C-Reactive Protein 13.8 mg/L (<10.0) H 04/22/17 07:20 Total Protein 5.6 g/dL (6.3-8.2) L 04/21/17 08:08 Albumin 3.3 g/dL (3.5-5.0) L 04/21/17 08:08 Random Vancomycin 18.3 ug/mL 04/23/17 07:11 Microbiology 04/20/17 19:33 Blood Blood Culture - Preliminary No Growth after 48 hours Assessment and Plan (1) Right radial head fracture Status: Acute (2) Right arm cellulitis Narrative/Plan: Pleasant 81-year-old gentleman percents from home with ongoing pain and swelling to his right arm. He is now greater than 10 days status post fall on his bathroom floor at home which resulted in the right radial head fracture. He now is evidence of the extensive cellulitis and swelling to the arm. With erythema from just proximal to the elbow all the way to the hand. The severe episodes Silvadene and medical honey will be placed on the ulceration. A light Nahid wrap will also be utilized. He is instructed to elevated on multiple pillows. This is also related to the nursing staff. Patient would like a sling.. With the cellulitis, vancomycin therapy will be used by cultures are in process. The ongoing good control of his diabetes is helpful for wound healing. A multivitamin with zinc will be added. Protein level to be evaluated and supplemented as indicated. Pain control appears to be adequate at this time. Status: Acute (3) Fall Status: Acute
[2017-04-23] MEDS: POLYETHYLENE GLYCOL 3350 17 GM POWD.PACK PO SCH (21:38)
--- NOTE | 2017-04-24 06:19 | PN ---
DATE OF SERVICE: 04/23/2017 PRESENTING COMPLAINT: Swelling of the right forearm. INTERVAL HISTORY: This patient presented with right distal forearm swelling status post fall about 10 days ago sustained a right radial fracture at that time. Today, sitting up in the bed, has better mobility of his hand and fingers and his arm. Able to lift his hand up further than previously. Tolerating his diet, ambulatory in the room to and from the bed in the hallways with assistance. Review of systems done for constitutional, cardiovascular, GI, pulmonary, integument with relevant findings as above. CURRENT MEDICATIONS: Pound 5/325 q.4 hours, Lipitor, Coreg 6.25 mg b.i.d., Plavix, Silvadene cream, vancomycin. PHYSICAL EXAM: VITAL SIGNS: Temperature 97.4, pulse 68, respiratory rate 20, blood pressure 156/70, oxygen saturation 94% on room air. GENERAL APPEARANCE: Patient lying in the bed, comfortable, breathing easily. Pupils equal. Conjunctivae normal. NECK: JVD not raised. Mass not palpable. LUNGS: Sounds diminished bilaterally. RESPIRATORY: Effort normal. CARDIOVASCULAR: First and second sounds noted. Trace edema. ABDOMEN: Soft, nontender. Liver and spleen not palpable. PSYCHIATRY: Alert and oriented x3. Mood and affect are normal. INVESTIGATIONS: White blood cell count 4.7, hemoglobin 10.5. Sodium 140, BUN 27, creatinine 1.52. Blood glucose 98. ASSESSMENT: 1. Right forearm cellulitis secondary to a fall, improving. 2. Right radial neck fracture secondary to recent fall. 3. Chronic congestive heart failure, ejection fraction not known. 4. Essential hypertension. 5. Diabetes mellitus, type 2, on oral hypoglycemic. 6. Chronic kidney disease stage III likely from diabetic nephropathy. 7. Hypercholesterolemia. 8. Coronary artery disease with prior history of myocardial infarction. 9. Abdominal aortic aneurysm. 10. Morbid obesity; body mass index of 31.5. PLAN: Continue on vancomycin per Infectious Disease. Will continue to follow closely. Patient was seen and examined by nurse practitioner, Xiomara Cuevas, and all elements of the case discussed with attending, Dr. Mehta.
[2017-04-24] MEDS: HYDROcodone/APAP 5-325MG 1 EACH TAB PO PRN (06:34)
--- NOTE | 2017-04-24 08:09 | PN ---
DATE OF SERVICE: 04/23/2017 ATTENDING NOTE: This patient was seen and examined by me. I reviewed the note of my nurse practitioner, Ms. Cuevas. Discussed additional findings below. This patient presented with right forearm swelling, wound, questionable abscess, actually doing better with antibiotics. At this point, no surgery is to be done. On examination, decreased tenderness, redness, afebrile. Patient's white count is 4.7. ASSESSMENT: Right forearm cellulitis with wound, status post fall in the setting a right radial neck fracture. PLAN: Continue with antibiotics. Care was discussed with the patient, encouraged to be out of bed. Will follow.
[2017-04-24 08:11] LABS: Basophils % (A) 0 %; CH 32.4; CHCM 33.2; Eosinophils # (A) 0.2 k/uL (0-0.7); Eosinophils % (A) 3 %; HCT 33.6 % (39.0-53.0); HDW 2.49; HGB 11.1 gm/dL (13.0-17.5); Luc % (Auto) 1; Lymphocytes # (A) 0.9 k/uL (1.0-4.8); Lymphocytes % (A) 14 %; MCH 32.3 pg (25.0-35.0); MCV 98.1 fL (80.0-100.0); Mean Platelet Volume 7.8; Monocytes # (A) 0.3 k/uL (0-1.0); Monocytes % (A) 4 %; Neutrophils # (A) 5.2 k/uL (1.3-7.7); Neutrophils % (A) 77 %; RBC 3.42 m/uL (4.30-5.90); RDW 13.1 % (11.5-15.5); WBC 6.7 k/uL (3.8-10.6); WBC (Perox) 7.02
[2017-04-24 08:37] LABS: Anion Gap 8 mmol/L; Blood Urea Nitrogen 24 mg/dL (9-20); Calcium 8.4 mg/dL (8.4-10.2); Carbon Dioxide 18 mmol/L (22-30); Chloride 112 mmol/L (98-107); Glucose 97 mg/dL (74-99); Non-African American GFR(MDRD) 51 (>60 ml/min/1.73 sqM); Potassium 4.5 mmol/L (3.5-5.1); Sodium 138 mmol/L (137-145)
[2017-04-24] MEDS: PIOGLITAZONE 15 MG TAB PO SCH (09:27)
[2017-04-24] MEDS: ATORVASTATIN 80 MG TAB PO SCH (09:27)
[2017-04-24] MEDS: CLOPIDOGREL 75 MG TAB PO SCH (09:27)
[2017-04-24] MEDS: ENOXAPARIN 40 MG/0.4 ML SYRINGE SQ SCH (09:27)
[2017-04-24] MEDS: CITALOPRAM HYDROBROMIDE 20 MG TAB PO SCH (09:27)
[2017-04-24] MEDS: ASPIRIN 81 MG CHEW PO SCH (09:27)
[2017-04-24] MEDS: CARVEDILOL 6.25 MG TAB PO SCH ×2 (09:27→18:05)
[2017-04-24] MEDS: MULTIVITAMINS, THERA 1 EACH TAB PO SCH (12:37)
--- NOTE | 2017-04-24 13:23 | PN ---
DATE OF SERVICE: 04/24/2017 PRESENTING COMPLAINT: Swelling right forearm. INTERVAL HISTORY: This patient presented with right distal forearm swelling, status post fall about 10 days ago, sustained a right radial fracture at that time. Today, sitting up in the bed, increased mobility of his hand and fingers. Able to lift his arm up further today. Tolerating his diet. Ambulatory in the room to the bathroom. Review of systems done for constitutional, cardiovascular, GI, pulmonary, integument with relevant findings as above. CURRENT MEDICATIONS: Gravette, Lipitor, Coreg, Plavix, Silvadene cream, vancomycin. PHYSICAL EXAM: VITAL SIGNS: Temperature 97.8, pulse 61, respirations 18, blood pressure 149/73, oxygen saturation 93% on room air. GENERAL APPEARANCE: Sitting up in the bed, calm, cooperative. EYES: Pupils equal. Conjunctivae normal. NECK: JVD not raised. Mass not palpable. LUNGS: Diminished bilaterally. RESPIRATORY: Effort normal. CARDIOVASCULAR: First and second sounds noted. Trace edema noted to the right forearm. ABDOMEN: Soft, nontender. Liver and spleen not palpable. PSYCHIATRY: Alert and oriented x3. Mood and affect are normal. INVESTIGATIONS: White blood cell count 6.7, hemoglobin 11.1, platelet count 131. BUN 24, creatinine 1.35. Preliminary blood culture results no growth after 72 hours. ASSESSMENT: 1. Right forearm cellulitis secondary to a fall, improving 2. Right radial neck fracture secondary to recent fall. 3. Chronic congestive heart failure, ejection fraction not known. 4. Essential hypertension. 5. Diabetes mellitus, type 2, on oral hypoglycemic. 6. Chronic kidney disease, stage III, likely from diabetic nephropathy. 7. Hypercholesterolemia. 8. Coronary artery disease with prior history of myocardial infarction. 9. Abdominal aortic aneurysm. 10. Morbid obesity; body mass index of 31.5. PLAN: Continue vancomycin and dressing changes per ID recommendations. Will continue to follow closely. Patient seen and examined by nurse practitioner, Xiomara Cuevas, and all elements of the case discussed with attending, Dr. Mehta.
--- NOTE | 2017-04-24 15:33 | P.PN ---
Progress Note - Text Patient was seen and evaluated today at bedside by Dr. Alvares and myself regarding the right forearm. Patient states that his movement and discomfort in the form is much improved. On exam, patient's arm is wrapped with a Eugenio type bandage along with Nahid bandage to the wrist, there is notable swelling in the hand. Bandage was removed, obvious hematoma still present in the right dorsal lateral aspect of the proximal forearm. Abrasion is also noted in that region. Patient is able to wiggle the fingers. Clinically the forearm remained stable at this time. No orthopedic surgical intervention needed. Recommended continuation of bandage and Nahid wrap. I did adjust Nahid wrap to include the hand to help prevent swelling in the hand and fingers. I recommended continuation of the arm sling at this time with regards to the radial head fracture. Patient is stable for outpatient follow-up Dr. Hernandez at 2 weeks
[2017-04-24] MEDS: SODIUM CHLORIDE 0.9% 1,000 ML IV SCH (16:12)
[2017-04-24] MEDS: VANCOMYCIN 1,500 MG in SODIUM CHLORIDE 0.9% 250 ML IVPB SCH (18:05)
[2017-04-24 21:06] LABS: Glucose,Whole Blood 95 mg/dL (75-99)
[2017-04-24] MEDS: POLYETHYLENE GLYCOL 3350 17 GM POWD.PACK PO SCH (21:50)
[2017-04-25 00:28] VITALS: RESP 18
[2017-04-25] MEDS: SODIUM CHLORIDE 0.9% 1,000 ML IV SCH ×2 (03:48→11:14)
[2017-04-25] MEDS: CARVEDILOL 6.25 MG TAB PO SCH (07:36)
[2017-04-25] MEDS: CITALOPRAM HYDROBROMIDE 20 MG TAB PO SCH (07:37)
[2017-04-25] MEDS: ENOXAPARIN 40 MG/0.4 ML SYRINGE SQ SCH (07:37)
[2017-04-25] MEDS: ASPIRIN 81 MG CHEW PO SCH (07:37)
[2017-04-25] MEDS: CLOPIDOGREL 75 MG TAB PO SCH (07:37)
[2017-04-25] MEDS: ATORVASTATIN 80 MG TAB PO SCH (07:37)
[2017-04-25] MEDS: PIOGLITAZONE 15 MG TAB PO SCH (07:38)
[2017-04-25 07:53] VITALS: PULSE 71; TEMP 97.5
[2017-04-25 08:45] VITALS: BP 147/67
[2017-04-25 08:49] LABS: Calcium 8.9 mg/dL (8.4-10.2); Potassium 4.2 mmol/L (3.5-5.1)
[2017-04-25] MEDS: HYDROmorphone 1 MG/ML 1 ML SYRINGE IV PRN (09:48)
[2017-04-25] MEDS: MULTIVITAMINS, THERA 1 EACH TAB PO SCH (11:14)
--- NOTE | 2017-04-25 14:32 | PN ---
DATE OF SERVICE: 04/24/2017 ATTENDING NOTE: This patient is seen and examined by me on 04/24/2017. I reviewed the note of my nurse practitioner, Ms. Cuevas. Discussed additional findings below. This patient presents with right severe cellulitis wound, which is actually getting better, swelling is coming down. Cultures are pending. On examination, decreased tenderness, decreased swelling, afebrile. Lungs are clear. INVESTIGATIONS: Blood cultures are negative until now. ASSESSMENT: Right forearm cellulitis and wound secondary to trauma from fall with, improving right medial leg fracture. PLAN: Continue current medication and treatment plan. Care was discussed with the patient. Will follow.
--- NOTE | 2017-04-26 14:57 | DS ---
DATE OF ADMISSION: 04/20/2017 DATE OF DISCHARGE: 04/25/2017 FINAL DIAGNOSES: 1. Acute right forearm cellulitis and wound secondary to fall and secondarily infected hematoma, on the right arm. 2. Right radial neck fracture, subacute secondary to recent fall. 3. Chronic congestive heart failure, ejection fraction not known from underlying coronary artery disease. 4. Essential hypertension. 5. Diabetes mellitus type 2, on oral hypoglycemic. 6. Chronic kidney disease stage III like from diabetic nephropathy. 7. Hypercholesterolemia. 8. Coronary artery disease with prior history of myocardial infarction. 9. Abdominal aortic aneurysm, size unknown. 10. Morbid obesity; body mass index of 31.5. HOSPITAL COURSE: This is a very pleasant 81-year-old patient of Dr. Peguero who took a fall about 10 days ago with a fracture to the right radius. Suppose to follow with Dr. Hernandez. In the meantime, the right forearm wound resulted in large hematoma, appears to be infected. Seen by Dr. Alvares and Dr. Leung. It was felt not the need for it to be drained. Patient was given vancomycin. It did improve. Pain, swelling had gone down, no more fever, no white count. Today, I did talk to Dr. Leung and he will okay the patient to be discharged on doxycycline. Patient is very keen to go home. On examination, swelling of the right forearm from superficial wound. Decreased tenderness and swelling from before. White count 26.7. DISCHARGE MEDICATIONS: 1. Aspirin 81 mg a day. 2. Coreg 6.25 p.o. b.i.d. 3. Plavix 75 mg p.o. daily. 4. Lipitor 80 mg p.o. daily. 5. Celexa 20 mg p.o. daily. 6. Valium 5 mg p.o. daily p.r.n. 7. Hydrochlorothiazide 12.5 p.o. daily. 8. Actos 50 mg p.o. daily. 9. Pomaria 5 one to two tablets q.4 p.r.n. 10. Zestril 30 mg p.o. daily. 11. Doxycycline 100 mg p.o. q.12 twenty capsules. 12. MiraLAX 17 gm p.o. q.h.s. 13. Silvadene cream topical with Nahid wraps of right arm in a sling. Follow up with Dr. Peguero on 05/09/2017; Dr. Hernandez on 05/09/2017 and follow up with Dr. Leung in 10 days. DC ( ) more than 35 minutes.
[2017-04-26] MEDS ORDERED: VANCOMYCIN TROUGH DUE 1 EACH MISC MISCELLANE ONE (17:00)
== END 2017-04-25 14:09 | disposition home or self-care (01) | DRG 603 ==
LOC: EC 16:58 → 4MS4W 20:42
PROVIDERS: ADMIT Hospitalist; ATTEND Hospitalist
DX: L03.113 Cellulitis of right upper limb (principal); I13.0 Hypertensive heart and chronic kidney disease with heart failure and stage 1 through stage 4 chronic kidney disease, or unspecified chronic kidney disease; I69.351 Hemiplegia and hemiparesis following cerebral infarction affecting right dominant side; E11.22 Type 2 diabetes mellitus with diabetic chronic kidney disease; I50.9 Heart failure, unspecified; E11.649 Type 2 diabetes mellitus with hypoglycemia without coma; E87.5 Hyperkalemia; E86.0 Dehydration; E66.01 Morbid (severe) obesity due to excess calories; E78.00 Pure hypercholesterolemia, unspecified; F32.9 Major depressive disorder, single episode, unspecified; I25.10 Atherosclerotic heart disease of native coronary artery without angina pectoris; I25.2 Old myocardial infarction; I71.4 Abdominal aortic aneurysm, without rupture; K59.00 Constipation, unspecified; N18.3 Chronic kidney disease, stage 3 (moderate); R79.1 Abnormal coagulation profile; S50.811A Abrasion of right forearm, initial encounter; S52.121A Displaced fracture of head of right radius, initial encounter for closed fracture; T45.525A Adverse effect of antithrombotic drugs, initial encounter; Z68.44 Body mass index [BMI] 60.0-69.9, adult; Z79.02 Long term (current) use of antithrombotics/antiplatelets; Z79.82 Long term (current) use of aspirin; Z79.899 Other long term (current) drug therapy; Z87.891 Personal history of nicotine dependence; Z85.9 Personal history of malignant neoplasm, unspecified; Z82.49 Family history of ischemic heart disease and other diseases of the circulatory system
CPT/HCPCS: 36415; 80048; 80053; 80202; 83036; 83605; 84134; 85025; 85652; 86140; 87040; 96361; 96365; 96375; 99285

== ENCOUNTER 2017-05-29 10:10 | Inpatient (IN) | payer MEDICARE, OTHER ==
[2017-05-29] MEDS ORDERED: SODIUM CHLORIDE 0.9% 1,000 ML IV ONE (12:33)
[2017-05-29] MEDS ORDERED: MORPHINE SULFATE 4 MG/ML SYRINGE IV ONE (12:48)
--- NOTE | 2017-05-29 12:48 | ED ---
General Adult HPI - General Chief complaint: Neck Pain/Injury Stated complaint: Pain R Knee Time Seen by Provider: 05/29/17 11:22 Source: patient, EMS Mode of arrival: EMS Limitations: no limitations - History of Present Illness Initial comments: Yon Roberts is a 81-year-old male with extensive past medical history. 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 Approximately one month ago the patient had a fall resulting in a fracture to his right elbow. Family states that since that time he has deteriorated significantly. They state that this injury cause significant limitations of his functional ability and they feel that he has been getting progressively more depressed because of this. Approximately one week ago the patient was seen by his primary care physician for a left foot injury, he was given antibiotics for concern of developing cellulitis. Apparently over the past 4 days the patient has developed pain in his right knee. He denies any recent injury. Although family does report he was limping due to the pain in his left foot last week and they're concerned that this may cause injury to the right knee. And also states that approximately 3 weeks ago he made the decision to stop taking any of his home medications. He reports that he doesn't want to take anything that will keep him alive. He is agreeable to taking antibiotics or pain medications but he refuses to take blood pressure medications or any of his cardiac meds as he feels that they keep him alive artificially. Patient also has reported to his family that approximately 4 days ago he made the decision to stop eating or drinking. Family is Dr. moore's primary care physician who expressed concern that the patient's behaviors are related to depression and that he may require some inpatient care. - Related Data Home Medications Medication Instructions Recorded Confirmed Hydrocodone/Acetaminophen [Brandon 1 tab PO Q6H PRN 04/20/17 05/29/17 5-325] Cephalexin [Keflex] 500 mg PO Q8HR 05/29/17 05/29/17 Allergies Allergy/AdvReac Type Severity Reaction Status Date / Time No Known Allergies Allergy Verified 05/29/17 11:03 Review of Systems ROS Statement: Those systems with pertinent positive or pertinent negative responses have been documented in the HPI. ROS Other: All systems not noted in ROS Statement are negative. Past Medical History Past Medical History: Cancer, Heart Failure, CVA/TIA, Hypertension Additional Past Medical History / Comment(s): Patient states he has abdominal aortic aneurysm History of Any Multi-Drug Resistant Organisms: None Reported Past Surgical History: Cholecystectomy Additional Past Surgical History / Comment(s): Left wrist carpal tunnel, right shoulder Past Anesthesia/Blood Transfusion Reactions: No Reported Reaction Past Psychological History: No Psychological Hx Reported Smoking Status: Former smoker Past Alcohol Use History: None Reported Past Drug Use History: None Reported - Past Family History Mother History Unknown: Yes Father Family Medical History: Congestive Heart Failure (CHF) General Exam Limitations: no limitations Course Vital Signs 05/29/17 05/29/17 05/29/17 10:14 11:13 12:59 Temperature 97.6 F Pulse Rate 84 86 72 Respiratory 18 18 18 Rate Blood Pressure 176/77 188/86 207/86 O2 Sat by Pulse 98 96 96 Oximetry 05/29/17 05/29/17 13:47 14:38 Temperature 98.2 F Pulse Rate 84 84 Respiratory 18 18 Rate Blood Pressure 146/67 167/72 O2 Sat by Pulse 95 95 Oximetry - Reevaluation(s) Reevaluation #1: Patient was reevaluated, reported some improvement in the pain in his right knee after morphine. Does still feel like she is having leg spasms. Labs and x -ray results were discussed with the patient family at bedside. Patient agreeable to admission to family aware that psychiatric services will be consult for the patient due to concern for depression. 05/29/17 14:37 Medical Decision Making - Medical Decision Making Patient was seen and examined, history was obtained by the patient's record, family and the patient Patient is agitated, states that he is in pain, states that he doesn't want to take medications to keep him alive Family expresses concern that the patient has not eaten, drank, take medications or gone off of his couch in 4 days Patient's primary care physician has expressed concern for the patient's mental health, concerned that he is depressed pastiness decline and physical abilities. Labs and imaging were ordered Patient with mild case of cellulitis on left foot, blood cultures were ordered IV Vasotec as ordered for hypertension Morphine for analgesia X-ray with effusion on the knee Labs with no acute findings, chronic kidney disease The albumin is low at 14 indicative of failure to thrive Patient care was discussed with Dr. Mehta who is familiar with the patient. He recommended clonidine patch for hypertension consult to psychiatry and he accepts the patient for admission - Lab Data Result diagrams: 05/29/17 12:55 05/29/17 12:55 Lab Results 05/29/17 05/29/17 05/29/17 Range/Units 12:50 12:55 12:55 WBC 9.3 (3.8-10.6) k/uL RBC 4.50 (4.30-5.90) m/uL Hgb 14.3 D (13.0-17.5) gm/dL Hct 43.1 (39.0-53.0) % MCV 95.9 (80.0-100.0) fL MCH 31.8 (25.0-35.0) pg MCHC 33.1 (31.0-37.0) g/dL RDW 12.7 (11.5-15.5) % Plt Count 171 (150-450) k/uL Neutrophils % 78 % Lymphocytes % 15 % Monocytes % 5 % Eosinophils % 1 % Basophils % 0 % Neutrophils # 7.2 (1.3-7.7) k/uL Lymphocytes # 1.4 (1.0-4.8) k/uL Monocytes # 0.4 (0-1.0) k/uL Eosinophils # 0.1 (0-0.7) k/uL Basophils # 0.0 (0-0.2) k/uL Sodium 138 (137-145) mmol/L Potassium 4.5 (3.5-5.1) mmol/L Chloride 100 (98-107) mmol/L Carbon Dioxide 23 (22-30) mmol/L Anion Gap 15 mmol/L BUN 25 H (9-20) mg/dL Creatinine 1.50 H (0.66-1.25) mg/dL Est GFR (MDRD) Af Amer 55 (>60 ml/min/1.73 sqM) Est GFR (MDRD) Non-Af 45 (>60 ml/min/1.73 sqM) Glucose 113 H (74-99) mg/dL Calcium 9.5 (8.4-10.2) mg/dL Magnesium 1.8 (1.6-2.3) mg/dL Total Bilirubin 1.1 (0.2-1.3) mg/dL AST 24 (17-59) U/L ALT 36 (21-72) U/L Alkaline Phosphatase 106 (38-126) U/L Creatine Kinase 45 L (55-170) U/L Total Protein 7.1 (6.3-8.2) g/dL Albumin 4.0 (3.5-5.0) g/dL Prealbumin 14 L (18-36) mg/dL Urine Color Yellow Urine Appearance Clear (Clear) Urine pH 6.0 (5.0-8.0) Ur Specific [place] 1.018 (1.001-1.035) Urine Protein 1+ H (Negative) Urine Glucose (UA) Negative (Negative) Urine Ketones Negative (Negative) Urine Blood Negative (Negative) Urine Nitrite Negative (Negative) Urine Bilirubin Negative (Negative) Urine Urobilinogen 2.0 (<2.0) mg/dL Ur Leukocyte Esterase Negative (Negative) Urine RBC 1 (0-5) /hpf Urine WBC 5 (0-5) /hpf Ur Squamous Epith Cells <1 (0-4) /hpf Urine Bacteria Rare H (None) /hpf Urine Mucus Rare H (None) /hpf Disposition Clinical Impression: Depression, Inability to ambulate due to knee, Failure to thrive in adult Disposition: ADMITTED IP TO THIS HOSP Referrals: Pio Peguero MD [Primary Care Provider] - 1-2 days
[2017-05-29] MEDS ORDERED: ENALAPRILAT 1.25 MG/ML 1 ML VIAL IVP STA (12:49)
[2017-05-29 13:22] LABS: Basophils % (A) 0 %; CH 31.9; CHCM 33.3; Eosinophils # (A) 0.1 k/uL (0-0.7); Eosinophils % (A) 1 %; HCT 43.1 % (39.0-53.0); HDW 2.39; Luc # (Auto) 0.15; Luc % (Auto) 2; Lymphocytes # (A) 1.4 k/uL (1.0-4.8); Lymphocytes % (A) 15 %; MCH 31.8 pg (25.0-35.0); MCHC 33.1 g/dL (31.0-37.0); MCV 95.9 fL (80.0-100.0); Mean Platelet Volume 7.6; Monocytes # (A) 0.4 k/uL (0-1.0); Monocytes % (A) 5 %; Neutrophils # (A) 7.2 k/uL (1.3-7.7); Neutrophils % (A) 78 %; RDW 12.7 % (11.5-15.5); WBC 9.3 k/uL (3.8-10.6); WBC (Perox) 9.32
[2017-05-29 13:38] LABS: Calcium 9.5 mg/dL (8.4-10.2); Total Bilirubin 1.1 mg/dL (0.2-1.3); Total Protein 7.1 g/dL (6.3-8.2)
[2017-05-29 13:42] LABS: HGB 14.3 gm/dL (13.0-17.5)
[2017-05-29 13:47] LABS: Appearance,Urine Clear (Clear); Bacteria,Urine Rare /hpf; Bilirubin,Urine Negative (Negative); Glucose,Urine (UA) Negative (Negative); Ketones,Urine Negative (Negative); Leukocyte Esterase,Urine Negative (Negative); Mucus,Urine Rare /hpf; Nitrite,Urine Negative (Negative); Particle Count 1018; Protein,Urine 1+ (Negative); RBC,Urine 1 /hpf (0-5); Specific Gravity,Urine 1.018 (1.001-1.035); Squamous Epithelial Cell,Urine <1 /hpf (0-4); UA Billing (MACRO vs. MICRO) MICRO; WBC,Urine 5 /hpf (0-5)
[2017-05-29 13:47] LABS: Potassium 4.5 mmol/L (3.5-5.1)
[2017-05-29 13:48] LABS: Magnesium 1.8 mg/dL (1.6-2.3)
--- NOTE | 2017-05-29 13:53 | XR ---
EXAMINATION TYPE: XR knee 4V RT DATE OF EXAM: 05/29/2017 CLINICAL HISTORY: Right knee pain. TECHNIQUE: Three views of the right knee are obtained. Addition fourth sunrise view was performed COMPARISON: None. FINDINGS: There is no acute fracture/dislocation evident in right knee. The tricompartment joint sp arun loss is seen. Patellar articulation is within normal limits on sunrise view. Ossified fabellae a re felt present posteriorly. There is some vascular calcification in the posterior soft tissues noted . Increased density suprapatellar bursa suspicious for large joint effusion. IMPRESSION: Nonspecific large suprapatellar joint effusion suspected. Tricompartment joint space loss noted.
[2017-05-29] MEDS ORDERED: NALOXONE 0.4 MG/ML 1 ML VIAL IV PRN (14:50)
[2017-05-29] MEDS ORDERED: cloNIDine 0.2 MG/24HR PATCH 1 PATCH PATCH TRANSDERM SCH (15:00)
[2017-05-29] MEDS ORDERED: KETOROLAC 30 MG/ML 1 ML VIAL IVP STA (15:00)
--- NOTE | 2017-05-29 21:09 | P.HPIM ---
History of Present Illness H&P Date: 05/29/17 Chief Complaint: Week This is a pleasant 81-year-old patient of Dr. Peguero. Chronic stable medical conditions include congestive heart failure, stroke, some right-sided weakness and numbness, hypertension, diabetes, depression, hypercholesterolemia. Patient had a fall in the latter part of April and a fractured right radius and subsequently admitted here at in early part of April with infected hematoma and cellulitis treated medically. Patient now developed infection of the left foot from what he describes probably got antibiotic injection by Dr. Peguero and followed by oral antibiotics. Patient also having pain in his right leg below the knee and finding it difficult to walk. Appetite is gone down and for all these symptoms put together the family decided to bring the patient in. Patient states he has been out of bed for about 5 days Significant past medical history congestive heart failure, stroke with right- sided numbness and weakness, hypertension, diabetes type 2, depression, hypercholesterolemia, myocardial infarction, abdominal aortic aneurysm Review of Systems GEN.: Tired EYES: None HEENT: Decreased hearing NECK: None RESPIRATORY: None CARDIOVASCULAR: None GASTROINTESTINAL: None GENITOURINARY: None MUSCULOSKELETAL: As above LYMPHATICS: None HEMATOLOGICAL: None PSYCHIATRY: Feels a bit low NEUROLOGICAL: Numbness on the right side Past Medical History Past Medical History: Coronary Artery Disease (CAD), Cancer, Chest Pain / Angina , Heart Failure, CVA/TIA, Hypertension, Myocardial Infarction ([place]), Osteoarthritis (OA) Additional Past Medical History / Comment(s): Patient states he has abdominal aortic aneurysm size unk, past fall -cellulitis rt arm d/t wound from that fall. skin ca 2010,"cva rt side affected and rt foot drags", "several mi's" Last Myocardial Infarction Date:: unk History of Any Multi-Drug Resistant Organisms: None Reported Past Surgical History: Cholecystectomy Additional Past Surgical History / Comment(s): Left wrist carpal tunnel, right shoulder, homer cataracts, skin ca removed 2010, rt foot middle toe sx. Past Anesthesia/Blood Transfusion Reactions: No Reported Reaction Additional Psychological History / Comment(s): . Alcohol rarely. Did smoke in the past Smoking Status: Former smoker - Past Family History Mother History Unknown: Yes Father Family Medical History: Congestive Heart Failure (CHF) Medications and Allergies Home Medications Medication Instructions Recorded Confirmed Type Hydrocodone/Acetaminophen [[place] 1 tab PO Q6H PRN 04/20/17 05/29/17 History 5-325] Cephalexin [Keflex] 500 mg PO Q8HR 05/29/17 05/29/17 History Allergies Allergy/AdvReac Type Severity Reaction Status Date / Time No Known Allergies Allergy Verified 05/29/17 11:03 Physical Exam VITAL SIGNS: 97.6, 84, 18, 176/77, 88% room air GENERAL: Average built, BMI 30.4 laying in bed tired appearing. EYES: Pupils equal. Conjunctiva normal. HEENT: External appearance of nose and ears normal, oral cavity grossly normal, decreased hearing. NECK: JVD not raised; masses not palpable. HEART: First and second heart sounds are normal; no edema. LUNGS: Respiratory rate normal; decreased breath sounds. ABDOMEN: Soft, nontender, liver spleen not palpable, no masses palpable. LYMPHATICS: No lymph nodes palpable in the axilla and neck. PSYCH: Alert and oriented x3; mood and affect a bit low.l. NEUROLOGICAL: Cranial nerves grossly intact; no facial asymmetry, right arm weakness, power 3-4 x 5. MUSCULOSKELETAL: Patient got weakness of the right arm, forearm mass below the right elbow, nontender Results CBC & Chem 7: 05/29/17 12:55 05/29/17 12:55 Labs: White count 9.3, hemoglobin 14.3, potassium 4.5, BUN 25, creatinine 1.5 Assessment and Plan Plan: Assessment: -Difficulty walking with evidence of arthritis in both the lower extremity, especially around the knees and the right hip. -Chronic congestive heart failure EF not known from underlying coronary artery disease -Essential hypertension -Diabetes mellitus type 2 on oral hypoglycemic -Chronic kidney disease stage III from epic nephropathy -Hypercholesterolemia -Only artery disease with history of myocardial infarction -Abdominal aortic aneurysm size unknown -Obesity BMI 31.5 -Recent right radial neck fracture causing infected hematoma and cellulitis now clinically improved Plan: Patient's home medications were resumed. We'll get physical therapy and occupational therapy in place. turn out worker will be involved.Care was discussed with the patient, questions were answered. We'll also get a psychiatry opinion has a consent is underlying depression. Patient's medications as per discharge summary on 04/27/2017 include: Aspirin 81 mg a day, Coreg 6.25 mg by mouth twice a day, Plavix 75 mg daily, Lipitor 80 mg by mouth daily, Celexa 20 mg daily, hydrochlorothiazide 12.5 by mouth daily, Actos 50 mg daily, [place] 51-2 tablets every 4 when necessary, Zestril 30 mg daily, doxycycline 100 mg by mouth every 12 for 20 pills, MiraLAX 17 g by mouth daily at bedtime, Silvadene cream topical, Valium 5 mg by mouth daily when necessary.
[2017-05-29] MEDS: PIOGLITAZONE 15 MG TAB PO SCH (21:46)
[2017-05-29] MEDS: CEPHALEXIN 500 MG CAP PO SCH (21:46)
[2017-05-29] MEDS: ATORVASTATIN 80 MG TAB PO SCH (21:46)
[2017-05-29] MEDS: CITALOPRAM HYDROBROMIDE 20 MG TAB PO SCH (21:46)
[2017-05-30] MEDS: CEPHALEXIN 500 MG CAP PO SCH ×3 (06:13→21:51)
[2017-05-30 06:58] LABS: Glucose,Whole Blood 110 mg/dL (75-99)
[2017-05-30] MEDS: POLYETHYLENE GLYCOL 3350 17 GM POWD.PACK PO SCH (08:08)
[2017-05-30] MEDS: ENOXAPARIN 40 MG/0.4 ML SYRINGE SQ SCH (08:09)
[2017-05-30] MEDS: CLOPIDOGREL 75 MG TAB PO SCH (08:09)
[2017-05-30] MEDS: PIOGLITAZONE 15 MG TAB PO SCH (08:09)
[2017-05-30] MEDS: LISINOPRIL-HCTZ 10-12.5 MG 1 EACH TAB PO SCH ×2 (08:09→21:51)
[2017-05-30] MEDS: CITALOPRAM HYDROBROMIDE 20 MG TAB PO SCH (08:10)
[2017-05-30] MEDS: HYDROcodone/APAP 5-325MG 1 EACH TAB PO PRN ×3 (08:10→21:51)
[2017-05-30 11:52] LABS: Glucose,Whole Blood 112 mg/dL (75-99)
--- NOTE | 2017-05-30 12:13 | P.CN ---
Psychiatric Consult - . Consult date: 05/30/17 Consult:: 05/30/17 11:38 Identification: Patient is a 81-year-old male who is admitted due to stopping his medication and not eating. Consultation was requested to assess the patient 's depression, lack of eating. Patient was seen in his room and no family members were present, chart was reviewed prior to the evaluation. History of Present Illness: Patient reports that he was doing well until the end of March when he fell in his bathroom and sustained a right radial fracture of his elbow, several weeks later he was admitted to the hospital in early April for an infected hematoma. This was resolving when he was discharged but he states that due to the weakness in his right arm after an CVA about 5-7 years ago he had less movement of his right arm and less ability to use his right hand. He states that he supports his right arm to use his right hand ever since his stroke. Since his stroke his movement in his right shoulder has been limited. He also injured his left foot about 5 weeks ago and was prescribed antibiotics for cellulitis and states that his knee began bothering him at that time. He reports that he has been on the couch at home for the last 5-7 days due to the pain in his knees. Prior to this he reports that he was up around the home using scooters, a golf cart when outside the home and he states that he was mowing the lawn until about 5 weeks ago when he injured his left foot using a riding lawnmower. Patient states that he was also driving up until that time mostly to the store for groceries any further distance and his daughter would drive him to appointments. He states that he has not had a good appetite since he had the CVA 5-7 years ago and lost about 35 pounds at that time and is now weighing about 200 pounds. He states that he stopped eating and stopped his medication because he doesn't feel he is going to get any better that the pain will increase and he doesn't want to live that way. He states that he will not kill himself because that's against his restoration, however he does feel that it is okay to stop eating and stopped his medications. He stopped his medications about 3 weeks ago he reports feeling better off the medications. Patient was on Celexa 20 mg at home he thinks for the last 4 years or so and is really unable to tell me why it was started other than he was told "it would make him feel better". He is not able to describe his symptoms at that time denies feeling depressed at that time, denies currently feeling depressed and states he is in pain and unable to walk or use his right arm as he was in the past and doesn't see the need for medication. He denied any suicidal attempts in the past, denies any intent currently as he feels it is against his restoration but does state that he stopped eating so he would . He stated to me that " it is okay with God if I do this". Patient does not endorse any symptoms of a psychotic process, no manic symptoms were endorsed and no anxiety symptoms were endorsed by the patient. Patient lives with his of 28 years in their own home and patient states that his has memory problems, he has been responsible for both of their medications. He states that he does some of the cooking mostly using a microwave as his is not able to cook as well as she did in the past. He describes it taking his a long time to cook, the food doesn't taste good, or she forgets to turn the stove on. He states that they have assistance with their housekeeping by her children. Patient was a fair historian as he was reluctant to speak with me as he did not feel he needed to see a psychiatrist and also doesn't feel that he's been depressed. Past Psychiatric History: Patient has been on Celexa 20 mg from his primary care physician for the last 4-5 years per the patient he denies any other psychiatric interventions. At home he was also using Valium 5 mg when necessary however the patient was unable to tell me how often he was taking that medication. He has no history of any inpatient psychiatric treatment. Past Medical/Surgical History: CVA greater than 5 years ago with right-sided weakness and limited range of motion in his right shoulder, hypertension, type 2 diabetes, chronic kidney disease, osteoarthritis, skin cancer unknown type, myocardial infarction about 12 years ago, coronary artery disease, and aortic aneurysm no surgical intervention. Patient is status post bilateral cataract removal, carpal tunnel surgery and cholecystectomy. Current Psychiatric Medications: Patient is currently prescribed Celexa 20 mg daily. Please see below for his complete medication list. Family History: Patient denies knowledge of any psychiatric history in his family and is unaware of any alcohol or substance abuse in his family. Social History: Patient was born in [place] and states that his parents were when he was 8 years of age, he states his father disowned him stating that he was in his father. He had 5 siblings 3 of whom are . He was in the and then worked for [employer] in the [employer] department and retired at the age of 58. He was initially for 30 years and has 4 children from that marriage and states all of them live in [place]. He reports that he has no contact with his oldest son and only intermittent contact with his other 3 children. He's been to his current for 28 years, she is currently 80 years of age and she has 5 children from her prior marriage. All of her children live in the area and are involved with the patient and his . He reports that he was living in [place] until he retired when he moved to [place] for the next 7 years. He then returned to [place] and lived there for 12 years. After he had his myocardial infarction there is some interaction between he and his son regarding patient's home in [place] and the patient return to live in [place] at that time. Patient reports that in his restoration is quite important to him states that he was driving them to latter day in the past which is over an hour away. He states that he was using a scooter, golf cart and in the tractor at home. He states since his fall and injuring his left foot that he has done very little around the house and has spent most of his days on the couch. Substance Use History: Patient states that he stopped smoking 50 years ago, denies any prior or current drug use, and states that he drinks an occasional beer. Mental Status: Appearance/Attitude: Patient is a 81-year-old male who was lying comfortably in his hospital bed, he was cooperative however questioned why I was seeing him and was a fair historian. Behavior: Patient exhibited no psychomotor agitation or retardation. Speech/Language: Patient's speech was spontaneous when responding to my questions, he was coherent. Thought Process: Patient was goal-directed and no evidence of any circumstantial or tangential thought. Thought Content: Patient denied any auditory or visual hallucinations, no delusional ideation was elicited, no thought broadcasting or thought insertion. Suicidal/Homicidal Ideation: Patient states that he is not going to actively kill himself because that is against his restoration but does feel that if he stops eating that is "okay with God" and feels that there is no reason for him to live with his current inability to function and pain. When asked about his he reported that her family referring to her children would take care of her. He has no prior history of any suicide attempts and denies any current homicidal ideation. Sensorium/Cognition: Patient was alert and oriented to person, place, situation and time. Patient's memory was grossly intact. Mood/Affect: Patient describes his mood as frustrated with his pain and inability to function and his affect was appropriate. Insight/Judgement: Patient's insight and judgment are fair. Current Medications Hydrocodone Bitart/Acetaminophen ([place] 5-325) 1 each PO Q6H PRN PRN Reason: Moderate Pain Last Admin: 05/30/17 08:10 Dose: 1 each Atorvastatin Calcium (Lipitor) 80 mg PO HS [facility] Last Admin: 05/29/17 21:46 Dose: 80 mg Cephalexin (Keflex) 500 mg PO Q8H [facility] Last Admin: 05/30/17 06:13 Dose: 500 mg Citalopram Hydrobromide (Celexa) 20 mg PO DAILY [facility] Last Admin: 05/30/17 08:10 Dose: 20 mg Clonidine HCl (Catapres-Tts 0.2mg Patch) 1 patch TRANSDERM Q7D [facility] Last Admin: 05/29/17 15:08 Dose: 1 patch Clopidogrel Bisulfate (Plavix) 75 mg PO DAILY [facility] Last Admin: 05/30/17 08:09 Dose: 75 mg Enoxaparin Sodium (Lovenox) 40 mg SQ DAILY [facility] Last Admin: 05/30/17 08:09 Dose: 40 mg Lisinopril/HCTZ (Zestoretic 10-12.5) 1 each PO BID [facility] Last Admin: 05/30/17 08:09 Dose: 1 each Naloxone HCl (Narcan) 0.2 mg IV Q2M PRN PRN Reason: Opioid Reversal Pioglitazone HCl (Actos) 15 mg PO DAILY [facility] Last Admin: 05/30/17 08:09 Dose: 15 mg Polyethylene Glycol (Miralax) 17 gm PO DAILY [facility] Last Admin: 05/30/17 08:08 Dose: 17 gm Assessment: A 81-year-old male who had a CVA and number of years ago with right- sided weakness who was functioning fairly well until fall at the end of March 2017 when he sustained a right radial fracture when he fell in the bathroom, subsequently having an infected hematoma and requiring a hospital stay in early April of this year and then developing a left foot cellulitis which he reports created knee pain. Patient has been on Celexa for at least 4-5 years from his primary care physician I suspect for symptoms of depression however the patient is unable to verbalize this to me only stating he was given it to make him feel better. Patient discontinued all of his medications 3 weeks ago when he was no longer able to function at home as he had been. He states that he felt better off of his medication and doesn't see the need for it although he is taking his medications in Hospital. Patient states that he spent the last 5 days on the couch at home due to pain. He is unable to verbalize or endorse any symptoms of depression only stating that he doesn't want to live the way he is feeling currently, referring to his inability to get around as he was before and the pain he is having in both knees and right shoulder. He does not feel that this hospital stay will improve any of those symptoms. Patient has no prior psychiatric history until his depressive symptoms seem to have occurred following his CVA, which appear to have responded to the treatment with Celexa 20 mg a day and recent stopping of all medications have caused a recurrence of his depression, with thoughts of dying stopping eating and a lack of interest or motivation as well as an increase in his pain and decreased mobility. Patient is living with his who is 80 years of age and he describes that she has difficulties with her memory and so he has been in charge of both of their medications using pill boxes at home and doing most of the cooking using a microwave mainly. The family members were present during the interview to confirm or validate his report. He states he was driving as well until 3 weeks ago when due to the pain in his knees he stopped. I suspect the patient had symptoms of depression following his CVA 5-7 years ago and it appears that they have Celexa was effective as the patient has been functioning fairly well up until his recent fall, however he is unable to verbalize this. 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 Would recommend at discharge that Valium not be continued due to its side effects. I discussed the case with the nurse the patient has been taking his medications , he did eat breakfast this morning and end we discussed possible social work consult to evaluate his living situation as it is unclear to me what issues or concerns his does have. At this time I see no reason to change his Celexa, will follow patient while he is in the hospital and evaluate his response to the medication and make any necessary changes based on his response or lack thereof. He is now back on all of his medications and in stabilization of his current medical problems will also improve his mental status as is the fact that he is now also receiving physical therapy and is receiving pain medication and I think treating his pain and improving his mobility will also improve his mental status.
--- NOTE | 2017-05-30 17:04 | P.CNOR ---
History of Present Illness - [facility] Consult date: 05/30/17 Consult reason: joint pain History of present illness: This is a 81-year-old male who was seen and examined at bedside today. Patient was brought to the hospital yesterday by family with regards to concern for his multiple medical issues. Patient has had a very detailed medical history over the last month or so. He had a fall in April, that resulted in a right-sided radial head fracture and he ended up developing a hematoma from this. Patient also had a question cellulitis of the left foot over the last few weeks, he had been managed in the outpatient setting, this seems to have resolved. Patient is also complaining of increasing pain involving the right knee. It was noted in the medical H&P that the patient had stopped taking a lot of his medications and also stopped eating and drinking over the last 3-5 days, a psychiatric consult was also placed. I personally had seen the patient in the outpatient setting for recheck of his right elbow a few weeks ago, he had also complained to me of left shoulder discomfort. We have done evaluation at that time, he has a chronic rotator cuff arthropathy with osteoarthritis. A steroid injection was provided into the subacromial space with very minimal relief. Patient is a history of a stroke that has left him with right-sided paresis. Since the initial fall back in April, he denies any recent falls, or other traumatic events. At bedside today patient does more discomfort involving the right knee, he states it feels swollen. He doesn't remember banging the knee into any objects or falling. He denies any pain involving the right hip. He denies any pain involving the foot or ankle on the right side. Review of Systems Constitutional: Reports as per HPI Past Medical History Past Medical History: Coronary Artery Disease (CAD), Cancer, Chest Pain / Angina , Heart Failure, CVA/TIA, Hypertension, Myocardial Infarction ([place]), Osteoarthritis (OA) Additional Past Medical History / Comment(s): Patient states he has abdominal aortic aneurysm size unk, past fall -cellulitis rt arm d/t wound from that fall. skin ca 2010,"cva rt side affected and rt foot drags", "several mi's" Last Myocardial Infarction Date:: unk History of Any Multi-Drug Resistant Organisms: None Reported Past Surgical History: Cholecystectomy Additional Past Surgical History / Comment(s): Left wrist carpal tunnel, right shoulder, homer cataracts, skin ca removed 2010, rt foot middle toe sx. Past Anesthesia/Blood Transfusion Reactions: No Reported Reaction Additional Psychological History / Comment(s): . Alcohol rarely. Did smoke in the past Smoking Status: Former smoker - Past Family History Mother History Unknown: Yes Father Family Medical History: Congestive Heart Failure (CHF) Medications and Allergies Home Medications Medication Instructions Recorded Confirmed Type Hydrocodone/Acetaminophen [[place] 1 tab PO Q6H PRN 04/20/17 05/29/17 History 5-325] Cephalexin [Keflex] 500 mg PO Q8HR 05/29/17 05/29/17 History Allergies Allergy/AdvReac Type Severity Reaction Status Date / Time No Known Allergies Allergy Verified 05/29/17 11:03 Physical Examination Right lower extremity: No obvious open lesions or sores present throughout the extremity Obvious effusion present over the right knee, no obvious erythema, no increase in warmth Range of motion is limited in that right lower extremity, he lacks about 3 of extension, he flexes to about 70, this reproduces pain over the anterior aspect He is nontender on the medial aspect of the joint line, he's nontender in the suprapatellar pouch, notable tenderness along the lateral joint line with palpation Logroll maneuver of the right lower extremity reproduces no right hip pain The calf is soft, there is no tenderness with palpation Plantar flexion, dorsiflexion, EHL, FHL are intact His sensory exam to light touch throughout the extremity is diminished, his dorsal pedis pulses 2+ Results - Labs Labs: Abnormal Lab Results - Last 24 Hours (Table) 05/30/17 05/30/17 Range/Units 06:56 11:50 POC Glucose (mg/dL) 110 H 112 H (75-99) mg/dL Microbiology - Last 24 Hours (Table) 05/29/17 12:55 Blood Culture - Preliminary Blood No Growth after 24 hours H & H 05/29/17 Range/Units 12:55 Hgb 14.3 D (13.0-17.5) gm/dL Hct 43.1 (39.0-53.0) % Result Diagrams: 05/29/17 12:55 05/29/17 12:55 - Diagnostic results Knee x-ray: report reviewed, image reviewed Assessment and Plan Plan: Imaging: Multiple views of the right knee were obtained and reviewed today. Images reveal no acute fractures or dislocations. Evidence of tricompartmental osteoarthritis noted, with joint space narrowing and osteophyte formation Assessment: 1. Right knee pain 2. Right knee effusion 3. 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 Multiple medical comorbidities Plan: 1. I was able to discuss this case, including both physical exam findings imaging studies with Dr. Hernandez. We would like to proceed with conservative management at this time. I recommended a aspiration of the effusion today at bedside to help with symptomatic relief. I discussed the risk and benefits of the procedure with the patient, also limitations of the procedure and he is in good understanding and like to proceed. Please see procedure note for further detail. 2. Pain control, continue oral narcotics as needed. Due to the patient's multiple arthritic joints and being a poor surgical candidate, may consider long -term pain control via a pain management doctor 3. Weight-bear as tolerated, walker with assistance would be of benefit 4. GI and DVT prophylaxis per medical recommendations 5. Other splint medical specialty recommendations 6. On orthopedic standpoint, stable for discharge, no orthopedic surgical intervention at this time Procedure note: Patient was in the supine position, the knee was prepped with 1 Betadine swab and 2 alcohol swabs. A 22-gauge needle was then used to anesthetize the area with 3 mL of 1% plain lidocaine. I then aspirated about 45 mL of serous fluid from the right knee. A bandages and applied after aspiration was complete. Patient tolerated the procedure well.
--- NOTE | 2017-05-30 18:51 | P.PN ---
Progress Note - Text DATE OF SERVICE: 05/30/2017 PRESENTING COMPLAINT: Weak INTERVAL HISTORY: 81-year-old male with arthritis in both lower extremities specifically bilateral knees and right hip. Complains of bilateral lower extremity pain particularly the knees. States it's almost impossible for him to walk. Eating only about 25% of his meal because of limited mobility of the right hand and arm. REVIEW OF SYSTEMS: Done for constitutional ,cardiovascular, GI, pulmonary with relevant findings as above. CURRENT MEDICATIONS [place], Celexa, Catapres, Plavix, Lovenox, Zestoretic, Actos, MiraLAX. PHYSICAL EXAM VITAL SIGNS: Temperature 98.4, pulse 82, respiratory rate 16, blood pressure 176/84, oxygen saturation 95% on room air GENERAL APPEARANCE: Sitting up in a chair, not in distress. EYES: Pupils equal. Conjunctiva normal. NECK: JVD not raised. Mass not palpable. RESPIRATORY: Respiratory effort normal. Lungs diminished to auscultation. CARDIOVASCULAR: First and second sounds normal. No edema. ABDOMEN: Soft. Liver and spleen not palpable. No tenderness. No mass palpable. PSYCHIATRY: Alert and oriented x3. Mood and affect normal. MUSCULOSKELETAL: Bilateral knees swollen tender to palpation warm limited range of motion bilateral hips tender to palpation, limited range of motion unable to stand for an extended period of time. INVESTIGATIONS: None new RIGHT KNEE ASPIRATION: 45 mL serous fluid obtained, sent for culture ASSESSMENT: -Difficulty walking with evidence of arthritis in both the lower extremity, especially around the knees and the right hip -Chronic congestive heart failure EF not known from underlying coronary artery disease -Essential hypertension -Diabetes mellitus type 2 on oral hypoglycemic -Chronic kidney disease stage III from epic nephropathy -Hypercholesterolemia -Coronary artery disease with history of myocardial infarction -Abdominal aortic aneurysm size unknown -Obesity BMI 31.5 -Recent right radial neck fracture causing infected hematoma and cellulitis now clinically improved -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 Continue Celexa for depression and discontinue Valium secondary to its many side effects. Plan of care discussed with the patient is agreeable. REGIONAL PRODUCTION MANAGER statement: Patient was seen and examined by nurse practitioner Xiomara Cuevas and all elements of the case discussed with attending Dr. Mehta
[2017-05-30] MEDS: ATORVASTATIN 80 MG TAB PO SCH (21:51)
[2017-05-31] MEDS: CEPHALEXIN 500 MG CAP PO SCH ×3 (06:15→20:52)
[2017-05-31 07:59] LABS: Basophils % (A) 0 %; CH 31.5; CHCM 32.9; Eosinophils # (A) 0.2 k/uL (0-0.7); Eosinophils % (A) 3 %; HCT 34.5 % (39.0-53.0); HDW 2.36; HGB 11.5 gm/dL (13.0-17.5); Luc # (Auto) 0.13; Luc % (Auto) 2; Lymphocytes # (A) 1.4 k/uL (1.0-4.8); Lymphocytes % (A) 22 %; MCHC 33.3 g/dL (31.0-37.0); MCV 96.1 fL (80.0-100.0); Mean Platelet Volume 7.8; Monocytes # (A) 0.3 k/uL (0-1.0); Monocytes % (A) 5 %; Neutrophils # (A) 4.4 k/uL (1.3-7.7); Neutrophils % (A) 68 %; RBC 3.59 m/uL (4.30-5.90); RDW 12.7 % (11.5-15.5); WBC 6.5 k/uL (3.8-10.6); WBC (Perox) 6.61
[2017-05-31 08:18] LABS: Calcium 8.7 mg/dL (8.4-10.2); Potassium 5.1 mmol/L (3.5-5.1)
[2017-05-31] MEDS: ENOXAPARIN 40 MG/0.4 ML SYRINGE SQ SCH (08:51)
[2017-05-31] MEDS: PIOGLITAZONE 15 MG TAB PO SCH (08:52)
[2017-05-31] MEDS: CITALOPRAM HYDROBROMIDE 20 MG TAB PO SCH (08:52)
[2017-05-31] MEDS: LISINOPRIL-HCTZ 10-12.5 MG 1 EACH TAB PO SCH (08:52)
[2017-05-31] MEDS: CLOPIDOGREL 75 MG TAB PO SCH (08:52)
[2017-05-31] MEDS: POLYETHYLENE GLYCOL 3350 17 GM POWD.PACK PO SCH (08:53)
--- NOTE | 2017-05-31 09:26 | PN ---
DATE OF SERVICE: 05/30/2017 ATTENDING NOTE: This patient is seen and examined by me. Reviewed the note of my nurse practitioner, Lucía Mason. Discussed additional findings below. INTERVAL HISTORY: This is patient who presented with pain in the lower extremities finding it difficult to walk. Had some pain in the left ankle, right hip, right knee. Earlier today seen by Orthopedics who actually drained effusion from the right knee. Physical therapy is working with the patient. On exam, afebrile. Blood pressure 176/84. Repeat blood pressure 117/51. On examination swelling of the right knee. ASSESSMENT: Arthritis in multiple joints causing gait dysfunction. Will follow with physical therapy recommendations. Care discussed with the patient. MIC
[2017-05-31] MEDS: HYDROcodone/APAP 5-325MG 1 EACH TAB PO PRN (09:33)
[2017-05-31] MEDS ORDERED: HYDROcodone/APAP 5-325MG 1 EACH TAB PO STA (09:58)
[2017-05-31] MEDS: SODIUM CHLORIDE 0.9% 1,000 ML IV SCH (14:08)
[2017-05-31] MEDS: DICLOFENAC SODIUM GEL 100 GM TUBE TOPICAL SCH ×2 (14:32→17:07)
[2017-05-31] MEDS: HYDROcodone/APAP 10-325MG 1 EACH TAB PO PRN ×2 (16:24→22:28)
[2017-05-31 16:53] LABS: Glucose,Whole Blood 117 mg/dL (75-99)
[2017-05-31 20:47] LABS: Glucose,Whole Blood 107 mg/dL (75-99)
[2017-05-31] MEDS: ATORVASTATIN 80 MG TAB PO SCH (20:52)
[2017-05-31] MEDS: METOPROLOL TARTRATE 50 MG TAB PO SCH (20:53)
[2017-06-01] MEDS: DICLOFENAC SODIUM GEL 100 GM TUBE TOPICAL SCH ×5 (02:18→22:11)
[2017-06-01] MEDS: SODIUM CHLORIDE 0.9% 1,000 ML IV SCH ×2 (03:41→17:42)
[2017-06-01] MEDS: CEPHALEXIN 500 MG CAP PO SCH ×3 (06:10→22:10)
[2017-06-01 07:38] LABS: Basophils % (A) 1 %; CH 31.5; CHCM 32.7; Eosinophils # (A) 0.2 k/uL (0-0.7); Eosinophils % (A) 4 %; HCT 32.8 % (39.0-53.0); HDW 2.39; HGB 10.9 gm/dL (13.0-17.5); Luc # (Auto) 0.13; Luc % (Auto) 3; Lymphocytes # (A) 1.4 k/uL (1.0-4.8); Lymphocytes % (A) 29 %; MCH 32.1 pg (25.0-35.0); MCHC 33.2 g/dL (31.0-37.0); MCV 96.6 fL (80.0-100.0); Monocytes # (A) 0.3 k/uL (0-1.0); Monocytes % (A) 6 %; Neutrophils # (A) 2.8 k/uL (1.3-7.7); Neutrophils % (A) 58 %; RDW 12.7 % (11.5-15.5); WBC 4.8 k/uL (3.8-10.6); WBC (Perox) 4.97
[2017-06-01 07:49] LABS: Calcium 8.3 mg/dL (8.4-10.2); Potassium 4.9 mmol/L (3.5-5.1)
[2017-06-01] MEDS: METOPROLOL TARTRATE 50 MG TAB PO SCH (08:36)
[2017-06-01] MEDS: PIOGLITAZONE 15 MG TAB PO SCH (08:36)
[2017-06-01] MEDS: CLOPIDOGREL 75 MG TAB PO SCH (08:36)
[2017-06-01] MEDS: POLYETHYLENE GLYCOL 3350 17 GM POWD.PACK PO SCH ×2 (08:36→08:53)
[2017-06-01] MEDS: CITALOPRAM HYDROBROMIDE 20 MG TAB PO SCH (08:36)
[2017-06-01] MEDS: HYDROcodone/APAP 10-325MG 1 EACH TAB PO PRN (08:52)
[2017-06-01] MEDS ORDERED: ENOXAPARIN 30 MG/0.3 ML SYRINGE SQ SCH (09:00)
[2017-06-01 10:33] VITALS: BMI 30.4
[2017-06-01 11:57] LABS: Glucose,Whole Blood 108 mg/dL (75-99)
--- NOTE | 2017-06-01 14:29 | CDI ---
In responding to this query, please exercise your independent professional judgment. The [facility] Coding Staff and Clinical Documentation Specialists appreciate your assistance in clarifying documentation, maintaining compliance with coding guidelines, accurately documenting patients condition and capturing severity of illness. The fact that a question is asked does not imply that any particular answer is desired or expected. Communication forms are a method of clarifying documentation and are not made part of the Legal Health Record. Thank you in advance for your clarification. Last Revision, January 2016 Holly Cárdenas [address] [place] [address] Documentation Clarification Form Date: 06/01/2017 2:09:00 PM From: Cristal Davida Admit Date: 05/31/2017 2:04:00 PM Patient Name: Yon Roberts Visit Number: [id number] Discharge Date: Dr. Armando Hernandez/Spike Hadley PA-C Osteoarthritis is documented in your consult on 05/30/17. Patient history/risk factors: Osteoarthritis, Hypertension, Chronic systolic heart failure, Hypertension, CKD stage III, CVA/TIA Admit diagnosis: Right knee pain, right knee effusion, and right knee tricompartmental osteoarthritis with ac exacerbation Clinical indicators: Complains of increasing pain involving the right knee Radiology report(s): Right Knee: Nonspecific large suprapatellar joint effusion suspected. Tricompartment joint space loss noted. Treatment: Right knee aspiration Narco PO PRN In your professional opinion, please further specify osteoarthritis: Post-traumatic Primary Secondary Other (please specify) Unable to Determine Laterality: Left Right Bilateral Location: Knee Hip Hand Vertebrae Wrist Other (please specify) Associated condition (if applicable): Major osseous defect (specify site) Other (please specify): Please document in your progress notes in order to capture severity of illness and risk of mortality. Include clinical findings that support your diagnosis. FYI: Press F11 to launch patient chart Place X here if this finding has no clinical significance, is not applicable or if you are not able to provide any additional documentation. MTDD
--- NOTE | 2017-06-01 15:34 | XR ---
EXAMINATION TYPE: XR chest 2V DATE OF EXAM: 06/01/2017 COMPARISON: 02/27/2013 HISTORY: 81-year-old male ACDF placement TECHNIQUE: AP and lateral views FINDINGS: Heart is upper limits of normal in size. There is rightward patient rotation altering the normal card iomediastinal contours. Left hilar prominence probably secondary to this rotation. Mild interstitial prominence without consolidation or pleural effusion. IMPRESSION: Left hilar prominence likely due to patient rotation. Recommend short interval follow-up with well ce ntered PA and lateral views. If the finding persists, CT may be indicated. Otherwise, no acute proces s seen.
--- NOTE | 2017-06-01 15:37 | P.PN ---
Progress Note - Text Interval History: Follow-up to a consultation, patient is a 81-year-old male who was consulted for depression and failure to thrive. Patient was seen with his present who reports he is doing much better. Patient has been eating as well as continuing to take his medications. He reported he was doing better and did not verbalize that he wanted to or that he was trying to starve himself. His confirmed his attitude changed at home when his ability to perform his usual tasks inclined after his recent fall. She states that he was not himself and was usually a fighter. Patient had no complaints at this time. Mental Status: Patient was alert lying in his hospital bed and stated that he still could not use his arm and leg. He was oriented to person and place and his speech was spontaneous, thoughts were goal directed and there is no evidence of any auditory or visual hallucinations no delusions were elicited. He denied that he wanted to now and denied any suicidal or homicidal ideation. His mood was pleasant and his affect is appropriate. Assessment: Patient has been eating as well as taking his medications and his attitude has improved. He was not verbalizing to me his wish to . His reported that he was doing better than when he had been at home. When I questioned his regarding the patient's earlier statements that he took care of medications putting them in pillboxes for them both she agreed with me. She also agreed that he was caring for the yard outside with some help from a neighbor and that they both share the responsibility of cooking and that her daughter provided food for them as well. Plan: In reviewing the chart,a plan to have the patient go to rehab was discussed and his felt that this would be beneficial for the patient and he agreed with this. Patient continues on Celexa 20 mg daily and would continue this on his discharge, but would not restart Valium when necessary on his discharge.
--- NOTE | 2017-06-01 16:52 | P.PN ---
<Xiomara Cuevas - Last Filed: 06/01/17 16:29> Progress Note - Text DATE OF SERVICE: 06/01/2017 PRESENTING COMPLAINT: Weak INTERVAL HISTORY: 81-year-old male with arthritis in both lower extremities specifically bilateral knees and right hip. 06/01/2017: Patient continues to complain of joint pain, although it is mildly better. Patient's kidney function has improved mildly today we'll continue IV fluids. Blood pressure also found to be somewhat low and Lopressor was decreased by half today. Tolerating his diet, trying to move a bit however it is very difficult for him. Discussion had at the bedside with patient and family regarding discharge placement, family expressed concerns regarding transferring patient and proper strengthening for patient. patient's has her own medical problems and the patient and the rely on the daughter quite a bit. Case management was also present and made suggestion for inpatient rehab for short time to try and help the patient get back to his normal baseline functioning. Patient was reasonably agreeable, go to rehab and case management is actively working on this. 05/31/2017: Patient seen by orthopedics yesterday, aspiration of the right knee was performed, patient states it feels better, has some stiffness to his hips and left knee, states it's difficult for him to get around. Did not eat much breakfast approximately 20-30%, eating better at lunch, family present at the bedside.Patient found to have an increase in kidney function, stopped his Zestoretic. REVIEW OF SYSTEMS: Done for constitutional ,cardiovascular, GI, pulmonary with relevant findings as above. CURRENT MEDICATIONS [place], Celexa, Catapres, Plavix, Lovenox, Actos, MiraLAX. PHYSICAL EXAM VITAL SIGNS: Temperature 97.9, pulse 55, respiratory rate 16, blood pressure 115/57, oxygen saturation 94% on room air. GENERAL APPEARANCE: Lying in bed, not in distress. EYES: Pupils equal. Conjunctiva normal. NECK: JVD not raised. Mass not palpable. RESPIRATORY: Respiratory effort normal. Lungs diminished to auscultation. CARDIOVASCULAR: First and second sounds normal. No edema. ABDOMEN: Soft. Liver and spleen not palpable. No tenderness. No mass palpable. PSYCHIATRY: Alert and oriented x3. Mood and affect normal. MUSCULOSKELETAL: Bilateral knees swollen tender to palpation right knee significantly improved status post aspiration left knee warm limited range of motion patient lower extremity joints noted to be very stiff with limited range of motion, bilateral knees, feet, hips. bilateral hips tender to palpation, limited range of motion unable to stand or sit for an extended period of time. INVESTIGATIONS: LABS: Hemoglobin 10.9, sodium 131, BUN 49, creatinine 1.90. 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 He can OT will work with the patient until discharge. Case management will work on getting patient ready for discharge to inpatient rehab, will require a 3 day inpatient stay. COFFEE BLENDER statement: Patient was seen and examined by nurse practitioner Xiomara Cuevas and all elements of the case discussed with attending Dr. Mehta <Yuan Mehta - Last Filed: 06/01/17 19:46> Progress Note - Text Attending note. Date of service-06/01/2017 This patient was seen and examined by me . I reviewed the note of my nurse practitioner, Ms. Cuevas. Discussed with her, additional findings as below. Patient admitted with severe arthritis lower extremity causing difficulty in walking. Pain is somewhat better controlled. Also had acute renal failure. And low blood pressure.. Blood pressure noted to be running on the lower side hence the beta blockers were also discontinued this morning. Family does express that not able to take care of the patient has is a full assist right now. On examination: Lungs decreased breath sounds. Cardiovascular first seconds are normal, psych AO 3 Investigations: Hemoglobin 10.9, BUN 49, creatinine 1.90 Assessment and plan: -Acute renal failure either ATN or prerenal from Zestoretic, slow to respond. Continue with IV fluids -Relative hypotension-lead just patient's blood pressure medications further. Care was discussed at length with the patient and family the bedside and Yordan the shoe parts caser. Patient will need long-term rehab and then go from there. Total time spent today was about 40 minutes with over 25 minutes of discussion
[2017-06-01 16:56] LABS: Glucose,Whole Blood 104 mg/dL (75-99)
[2017-06-01] MEDS: BISACODYL 10 MG SUPP RECTAL SCH (17:41)
[2017-06-01 20:30] LABS: Glucose,Whole Blood 126 mg/dL (75-99)
[2017-06-01] MEDS: METOPROLOL TARTRATE 25 MG TAB PO SCH (20:35)
[2017-06-01] MEDS: ATORVASTATIN 20 MG TAB PO SCH (20:35)
[2017-06-02] MEDS: HYDROcodone/APAP 10-325MG 1 EACH TAB PO PRN (03:03)
[2017-06-02] MEDS: SODIUM CHLORIDE 0.9% 1,000 ML IV SCH ×2 (05:37→18:28)
[2017-06-02] MEDS: CEPHALEXIN 500 MG CAP PO SCH (06:02)
[2017-06-02 07:38] LABS: Glucose,Whole Blood 100 mg/dL (75-99)
[2017-06-02 08:16] LABS: Calcium 8.5 mg/dL (8.4-10.2); Potassium 4.8 mmol/L (3.5-5.1)
[2017-06-02] MEDS: BISACODYL 10 MG SUPP RECTAL SCH ×2 (09:21→09:23)
[2017-06-02] MEDS: ENOXAPARIN 40 MG/0.4 ML SYRINGE SQ SCH (09:21)
[2017-06-02] MEDS: METOPROLOL TARTRATE 25 MG TAB PO SCH ×2 (09:21→20:33)
[2017-06-02] MEDS: PIOGLITAZONE 15 MG TAB PO SCH (09:21)
[2017-06-02] MEDS: CLOPIDOGREL 75 MG TAB PO SCH (09:21)
[2017-06-02] MEDS: CITALOPRAM HYDROBROMIDE 20 MG TAB PO SCH (09:21)
[2017-06-02] MEDS: DICLOFENAC SODIUM GEL 100 GM TUBE TOPICAL SCH ×4 (09:22→23:55)
[2017-06-02 12:15] LABS: Glucose,Whole Blood 111 mg/dL (75-99)
--- NOTE | 2017-06-02 17:00 | P.PN ---
Progress Note - Text DATE OF SERVICE: 06/02/2017 PRESENTING COMPLAINT: Weak INTERVAL HISTORY: 81-year-old male with arthritis in both lower extremities specifically bilateral knees and right hip. 05/31/2017: Patient seen by orthopedics yesterday, aspiration of the right knee was performed, patient states it feels better, has some stiffness to his hips and left knee, states it's difficult for him to get around. Did not eat much breakfast approximately 20-30%, eating better at lunch, family present at the bedside.Patient found to have an increase in kidney function, stopped his Zestoretic. 06/01/2017: Patient continues to complain of joint pain, although it is mildly better. Patient's kidney function has improved mildly today we'll continue IV fluids. Blood pressure also found to be somewhat low and Lopressor was decreased by half today. Tolerating his diet, trying to move a bit however it is very difficult for him. Discussion had at the bedside with patient and family regarding discharge placement, family expressed concerns regarding transferring patient and proper strengthening for patient. patient's has her own medical problems and the patient and the rely on the daughter quite a bit. Case management was also present and made suggestion for inpatient rehab for short time to try and help the patient get back to his normal baseline functioning. Patient was reasonably agreeable, go to rehab and case management is actively working on this. 06/02/2017: Patient sitting up in the chair, family at the bedside. Patient's eating his lunch, primarily utilizing his left hand. Patient in good spirits however does continue to complain of arm pain, bilateral knee hip and leg pain, states that his right leg is "jumping" and wants us to stop it. Condition of arthritis was explained to the patient, emphasized the importance of staying mobile, and utilization of exercise. Patient appeared to understand. Appetite is fair eating roughly about 50% of his meals, does not really ambulate secondary to pain. REVIEW OF SYSTEMS: Done for constitutional ,cardiovascular, GI, pulmonary with relevant findings as above. CURRENT MEDICATIONS [place], Celexa, Catapres, Plavix, Lovenox, Actos, MiraLAX. PHYSICAL EXAM VITAL SIGNS: Temperature 97.7, pulse 62, respirations 16, blood pressure 135/61 oxygen saturation 96% on room air GENERAL APPEARANCE: Sitting in the chair, appears to be in good spirits. EYES: Pupils equal. Conjunctiva normal. NECK: JVD not raised. Mass not palpable. RESPIRATORY: Respiratory effort normal. Lungs diminished to auscultation. CARDIOVASCULAR: First and second sounds normal. No edema. ABDOMEN: Soft. Liver and spleen not palpable. No tenderness. No mass palpable. PSYCHIATRY: Alert and oriented x3. Mood and affect normal. MUSCULOSKELETAL: Bilateral knees swollen tender to palpation right knee significantly improved status post aspiration left knee warm limited range of motion patient lower extremity joints noted to be very stiff with limited range of motion, bilateral knees, feet, hips. bilateral hips tender to palpation, limited range of motion unable to stand or sit for an extended period of time. INVESTIGATIONS: LABS: Sodium 134, chloride 108, carbon dioxide 21, BUN 47, creatinine 1.63. 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 PLAN: Creatinine improved today however remains elevated, we'll continue IV fluids to try and improve kidney function. Continue diclofenac gel, and Nahid wraps to support joints, PT and OT will continue to work with patient until discharge. We'll follow. TIP STITCHER statement: Patient was seen and examined by nurse practitioner Xiomara Cuevas and all elements of the case discussed with attending Dr. Mehta
[2017-06-02 17:12] LABS: Glucose,Whole Blood 101 mg/dL (75-99)
[2017-06-02] MEDS: ATORVASTATIN 20 MG TAB PO SCH (20:33)
[2017-06-03] MEDS: PIOGLITAZONE 15 MG TAB PO SCH (08:49)
[2017-06-03] MEDS: METOPROLOL TARTRATE 25 MG TAB PO SCH ×2 (08:49→21:01)
[2017-06-03] MEDS: ENOXAPARIN 40 MG/0.4 ML SYRINGE SQ SCH (08:49)
[2017-06-03] MEDS: SODIUM CHLORIDE 0.9% 1,000 ML IV SCH (08:49)
[2017-06-03] MEDS: CITALOPRAM HYDROBROMIDE 20 MG TAB PO SCH (08:51)
[2017-06-03] MEDS: CLOPIDOGREL 75 MG TAB PO SCH (08:51)
[2017-06-03] MEDS: DICLOFENAC SODIUM GEL 100 GM TUBE TOPICAL SCH ×4 (08:51→21:01)
[2017-06-03] MEDS: POLYETHYLENE GLYCOL 3350 17 GM POWD.PACK PO SCH (08:51)
[2017-06-03] MEDS: BISACODYL 10 MG SUPP RECTAL SCH (08:51)
--- NOTE | 2017-06-03 09:15 | PN ---
DATE OF SERVICE: 06/02/17 ATTENDING NOTE: This patient was seen and examined by me. Reviewed the note of my nurse practitioner, Ms. Cuevas, discussed, additional findings below. INTERVAL HISTORY: This patient's pain in the lower extremities still present though better. The patient is sitting up. Family at the bedside, tolerating a diet. May need to go to ECF. Blood pressure is doing better. On examination, temperature 97.7, pulse 62. Respiratory 16. Blood pressure 135 /61. Pulse ox 96% on room air. Sitting up in a chair, comfortable, eating foods. Lungs are clear. Cardiovascular: First and second sounds normal. Investigations: BUN 47, creatinine 1.63. ASSESSMENT: 1. Multiple medical problems, doing better. Awaiting transfer to ECF. 2. Acute renal failure is getting better. PLAN: Care was discussed with the family. Blood pressure better controlled. MTDD
[2017-06-03 10:07] LABS: Calcium 8.5 mg/dL (8.4-10.2); Potassium 4.7 mmol/L (3.5-5.1)
[2017-06-03] MEDS ORDERED: HYDROcodone/APAP 5-325MG 1 EACH TAB PO PRN (15:41)
[2017-06-03] MEDS: ATORVASTATIN 20 MG TAB PO SCH (21:01)
--- NOTE | 2017-06-04 07:15 | PN ---
DATE OF SERVICE: 06/03/2017 PRESENTING COMPLAINT: Pain in the lower extremity joints. INTERVAL HISTORY: This is a patient with multiple problems who is not taking his medications at home. Because of arthritis was not walking. The patient had his right knee tapped by Orthopedics. I added some Voltaren Gel, some pain medications, some therapy for which patient is doing good. Actually patient took a few steps today. After discussion with the family, decided to send him to rehab. Patient is eating much better. Sitting up on a chair. Review of systems done for constitutional, cardiovascular, GI, pulmonary, musculoskeletal; relevant findings as above. Current medications are reviewed that include Celexa for depression, Voltaren Gel. On examination, temperature 98, pulse 60, respirations 16, blood pressure ( )/65, pulse ox 100% on room air. GENERAL APPEARANCE: Sitting up in a chair, comfortable. EYES: Pupils equal. Conjunctivae normal. NECK: JVD not raised. Mass no palpable. RESPIRATORY: Effort normal. LUNGS: Slight decreased breath sounds. CARDIOVASCULAR: First and second sounds normal. No edema. ABDOMEN: Soft, nontender. Liver and spleen not palpable. PSYCHIATRY: Alert and oriented x3. Mood and affect normal. MUSCULOSKELETAL: Evidence of osteoarthritis of multiple joints. INVESTIGATIONS: Potassium 4.7, BUN 37, creatinine 1.55. ASSESSMENT: 1. Gait dysfunction with severe arthritis both lower extremities doing better now, especially affecting the knees and the right hip. 2. Chronic congestive heart failure, EF not known, from underlying coronary artery disease. 3. Essential hypertension. 4. Diabetes mellitus type 2 on oral hypoglycemics. 5. Chronic kidney disease, stage III from diabetic nephropathy. 6. Hypercholesterolemia. 7. Coronary artery disease with history of myocardial infarction. 8. Abdominal aortic aneurysm, size unknown. 9. Obesity, body mass index 31.5. 10. Recent right radial neck fracture causing infected hematoma and cellulitis, not clinically resolved. 11. Depression secondary to stroke. 12. Hyponatremia likely hypoosmolar, now corrected. 13. Acute renal failure likely prerenal or acute tubular necrosis secondary to reinitiation of Zestoretic, now the latter which has been discontinued, corrected. 14. Gait dysfunction for severe arthritis, is using a walker. 15. Relative hypotension, now stabilized, medically adjusted. PLAN: Care was discussed at length. No family members at the bedside today. Looking at patient to go down to the rehab tomorrow on the current medications. Will have patient's blood pressure rechecked manually. MIC
[2017-06-04 07:47] LABS: Anion Gap 8 mmol/L; Blood Urea Nitrogen 36 mg/dL (9-20); Calcium 8.7 mg/dL (8.4-10.2); Carbon Dioxide 19 mmol/L (22-30); Chloride 111 mmol/L (98-107); Glucose 91 mg/dL (74-99); Non-African American GFR(MDRD) 50 (>60 ml/min/1.73 sqM); Potassium 4.6 mmol/L (3.5-5.1); Sodium 138 mmol/L (137-145)
[2017-06-04 07:57] VITALS: BP 169/74; PULSE 55; RESP 16; TEMP 97.9
[2017-06-04] MEDS: BISACODYL 10 MG SUPP RECTAL SCH (08:22)
[2017-06-04] MEDS: CLOPIDOGREL 75 MG TAB PO SCH (08:24)
[2017-06-04] MEDS: METOPROLOL TARTRATE 25 MG TAB PO SCH (08:24)
[2017-06-04] MEDS: CITALOPRAM HYDROBROMIDE 20 MG TAB PO SCH (08:24)
[2017-06-04] MEDS: DICLOFENAC SODIUM GEL 100 GM TUBE TOPICAL SCH (08:24)
[2017-06-04] MEDS: PIOGLITAZONE 15 MG TAB PO SCH (08:24)
[2017-06-04] MEDS: POLYETHYLENE GLYCOL 3350 17 GM POWD.PACK PO SCH (08:25)
[2017-06-04] MEDS: ENOXAPARIN 40 MG/0.4 ML SYRINGE SQ SCH (08:25)
[2017-06-04] MEDS ORDERED: SODIUM CHLORIDE 0.9% 1,000 ML IV SCH (10:45)
--- NOTE | 2017-06-04 12:31 | P.DS ---
Providers Date of admission: 05/31/17 14:04 Expected date of discharge: 06/04/17 Attending physician: Yuan Lima Consults: 05/29/17 14:51 Consult Physician Routine Consulting Provider: Kristin Zhou Consult Reason/Comments: depression, stopped taking meds, stopped eating Do you want consulting provider notified?: Yes 05/30/17 12:22 Consult Physician Routine Consulting Provider: Armando Hernandez Consult Reason/Comments: hip pain/foot pain Do you want consulting provider notified?: Yes Primary care physician: Pio Davisqvi Hospital Course: Final Diagnoses: ASSESSMENT: -Difficulty walking with evidence of arthritis in both the lower extremity, especially around the knees and the right hip. Acute exac. right Knee tricompartmental osteoarthritis with effusion, s/p aspiration. 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 Hospital course:This is a 81-year-old male with severe deconditioning, arthritis in both lower extremities,acute exac. right Knee tricompartmental osteoarthritis with effusion, s/p aspiration,renal failure and multiple other issues. Evauluated by [facility]. Medications adjusted including Zestoretic discontinued, B-raisa dose decreased. Maintained on gentle iv fluid hydration, diclofenac gel, and Nahid wraps. Significant Clinical improvement.Cleared By all consults for discharge. Patient is being discharged to [facility] in a stable condition with a guarded prognosis. The impression and plan of care has been dictated as directed as a scribe. : I performed a H&P examination of this patient and discussed the same with the dictator. I agree with the dictator's note. Any additional findings/opinions/ etc. will be noted. Patient Condition at Discharge: Stable Plan - Discharge Summary New Discharge Prescriptions: New Atorvastatin [Lipitor] 80 mg PO HS #30 tab Citalopram Hydrobromide [CeleXA] 20 mg PO DAILY #30 tab Clopidogrel [Plavix] 75 mg PO DAILY #30 tab Diclofenac Sodium Gel [Voltaren Gel] 4 gm TOPICAL QID #1 tube Metoprolol Tartrate [Lopressor] 50 mg PO BID #60 tab Pioglitazone [Actos] 15 mg PO DAILY #30 tab Polyethylene Glycol 3350 [Miralax] 17 gm PO DAILY #1 pack Metoprolol Tartrate [Lopressor] 25 mg PO BID tab traMADol HCL [Ultram] 50 mg PO Q6HR PRN #20 tab PRN Reason: Pain Discontinued Hydrocodone/Acetaminophen [[place] 5-325] 1 tab PO Q6H PRN PRN Reason: Pain Cephalexin [Keflex] 500 mg PO Q8HR Discharge Medication List Atorvastatin [Lipitor] 80 mg PO HS #30 tab 06/01/17 [Rx] Citalopram Hydrobromide [CeleXA] 20 mg PO DAILY #30 tab 06/01/17 [Rx] Clopidogrel [Plavix] 75 mg PO DAILY #30 tab 06/01/17 [Rx] Diclofenac Sodium Gel [Voltaren Gel] 4 gm TOPICAL QID #1 tube 06/01/17 [Rx] Metoprolol Tartrate [Lopressor] 50 mg PO BID #60 tab 06/01/17 [Rx] Pioglitazone [Actos] 15 mg PO DAILY #30 tab 06/01/17 [Rx] Polyethylene Glycol 3350 [Miralax] 17 gm PO DAILY #1 pack 06/01/17 [Rx] Metoprolol Tartrate [Lopressor] 25 mg PO BID tab 06/04/17 [Rx] traMADol HCL [Ultram] 50 mg PO Q6HR PRN #20 tab 06/04/17 [Rx] Follow up Appointment(s)/Referral(s): Thomas Hernandez DO [STAFF PHYSICIAN] - 3 Days (while at [facility]) Pio Peguero MD [Primary Care Provider] - 1 Week (after dc from [facility]) Armando Hernandez DO [Doctor of Osteopathic Medicine] - 1 Week Activity/Diet/Wound Care/Special Instructions: Jesse Negron CBC,bmp in 3days Discharge Disposition: TRANSFER TO SNF/ECF
== END 2017-06-04 13:15 | DRG 553 ==
LOC: EC 10:10 → 5MS5E 14:50 → OBSVTOIN 05-31 14:04
PROVIDERS: ADMIT Hospitalist; ATTEND Hospitalist
PROC: 0S9C3ZZ Drainage of Right Knee Joint, Percutaneous Approach (ICD-10-PCS; principal; 2017-05-30)
DX: M17.0 Bilateral primary osteoarthritis of knee (principal); N17.0 Acute kidney failure with tubular necrosis; I50.9 Heart failure, unspecified; I13.0 Hypertensive heart and chronic kidney disease with heart failure and stage 1 through stage 4 chronic kidney disease, or unspecified chronic kidney disease; E87.1 Hypo-osmolality and hyponatremia; I69.351 Hemiplegia and hemiparesis following cerebral infarction affecting right dominant side; E11.21 Type 2 diabetes mellitus with diabetic nephropathy; M16.11 Unilateral primary osteoarthritis, right hip; E11.22 Type 2 diabetes mellitus with diabetic chronic kidney disease; E66.9 Obesity, unspecified; E78.00 Pure hypercholesterolemia, unspecified; F32.9 Major depressive disorder, single episode, unspecified; I25.10 Atherosclerotic heart disease of native coronary artery without angina pectoris; I25.2 Old myocardial infarction; I71.4 Abdominal aortic aneurysm, without rupture; N18.3 Chronic kidney disease, stage 3 (moderate); R62.7 Adult failure to thrive; Z68.31 Body mass index [BMI] 31.0-31.9, adult; Z79.02 Long term (current) use of antithrombotics/antiplatelets; Z79.82 Long term (current) use of aspirin; Z79.84 Long term (current) use of oral hypoglycemic drugs; Z79.899 Other long term (current) drug therapy; Z82.49 Family history of ischemic heart disease and other diseases of the circulatory system; Z87.891 Personal history of nicotine dependence; M25.461 Effusion, right knee; T46.4X5A Adverse effect of angiotensin-converting-enzyme inhibitors, initial encounter
CPT/HCPCS: 36415; 71020; 80048; 80053; 81001; 82550; 83735; 84134; 85025; 87040; 96361; 96374; 96375; 99285

== ENCOUNTER → 2017-08-02 | Outpatient (CLI) | payer MEDICARE, OTHER ==
--- NOTE | 2017-08-02 14:35 | MR ---
EXAMINATION TYPE: MR shoulder LT wo con DATE OF EXAM: 08/02/2017 2:25 PM COMPARISON: NONE HISTORY: Lt shoulder pain TECHNIQUE: Multiplanar multispin echo imaging of the left shoulder was performed. FINDINGS: Rotator cuff : There is a chronic appearing retracted tear of the supraspinatus tendon with fluid keesha led gap of 2.1 cm. There is muscular atrophy noted. There is also partial tear of the infraspinatus t endon with muscular atrophy also appreciated. Partial tear is also suspected of the subscapularis ten don. There is elevation of the humeral head relative to the central glenoid axis. Marked narrowing of the subacromial space is noted. Bursa: There is evidence of subacromial fluid as well as fluid within the subacromial subdeltoid burs a and along the subscapularis tendon sheath. Musculature: Muscular atrophy as noted above. Acromioclavicular joint : There are severe degenerative changes of the acromioclavicular joint. Ther e is no anterior or lateral acromial downsloping. Osseous structures : Cystic degenerative change greater tuberosity. No evidence for fracture at this time. Long biceps tendon : The biceps tendon is normally situated within the bicipital groove. Partial tear suspected intra-articular portion of the biceps tendon. Glenohumeral Joint fluid : There is no glenohumeral joint effusion. Cartilage and Bone : Intact Labrum : Diminutive superior anterior glenoid labrum may reflect tear. OTHER FINDINGS : none IMPRESSION: 1. 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 Muscular atrophy as noted. Elevation humeral head relative to the central glenoid axis. Joint effusion as noted.
== END | disposition home or self-care (01) ==
LOC: RADMRIMAIN 13:33
PROVIDERS: ATTEND Orthopaedic Surgery
DX: M75.122 Complete rotator cuff tear or rupture of left shoulder, not specified as traumatic (principal); S46.812A Strain of other muscles, fascia and tendons at shoulder and upper arm level, left arm, initial encounter; M62.512 Muscle wasting and atrophy, not elsewhere classified, left shoulder